=== PATIENT | female | born 1990 | race Caucasian/White ===

== ENCOUNTER 2016-10-01 13:03 | Inpatient (IN) | payer OTHER ==
[~2016-10-01] VITALS: Ht 165.1 cm; Wt 63.5 kg
[2016-10-01] MEDS ORDERED: Ampicillin/Sulbactam Sod 3 GM in NS 110 ML IVPB ONE (14:00)
[2016-10-01] MEDS ORDERED: Unasyn 3gm Inj ONE (14:10)
[2016-10-01] MEDS ORDERED: Morphine Sulfate 4mg/ml Inj IVP ONE (14:15)
[2016-10-01 14:57] LABS: BASOPHILS % (AUTO) 0.4 % (0.0-2.0); EOSINOPHILS % (AUTO) 1.3 % (0.0-3.0); LYMPHOCYTES % (AUTO) 26.1 % (20.0-45.0); MEAN CORPUSCULAR HEMOGLOBIN 30.1 PG (27.0-31.0); MEAN CORPUSCULAR VOLUME 89 FL (80-99); MEAN PLATELET VOLUME 7.3 FL (6.5-10.1); MONOCYTES % (AUTO) 7.5 % (1.0-10.0); NEUTROPHILS % (AUTO) 64.6 % (45.0-75.0); PLATELET COUNT 290 K/UL (150-450); RED BLOOD COUNT 4.12 M/UL (4.20-5.40); WHITE BLOOD COUNT 9.7 K/UL (4.8-10.8)
--- NOTE | 2016-10-01 15:12 | Emergency Room Report ---
History of Present Illness General Chief Complaint: Pain Source: Patient Present Illness HPI 26-year-old female presents to ED for evaluation. Patient referred here by PMD Dr. Bender. Patient states that 4 years ago she received silicone injections in both of her buttocks. States that since then she's had persistent pain to her buttocks. Pain is 10 out of 10. Sharp. Radiating to her back and radiating down her legs. Denies any fevers or chills. Denies any leg or motor weakness. No other aggravating relieving factors. Denies any other associated symptoms Allergies: Coded Allergies: No Known Allergies (Unverified , 10/01/16) Patient History Past Medical History: none Past Surgical History: none Pertinent Family History: none Social History: Denies: alcohol use, drug use, smoking Last Menstrual Period: 09/22/16 Now: No Immunizations: UTD Reviewed Nursing Documentation: PMH: Agreed, PSxH: Agreed Nursing Documentation-PMH Past Medical History: No Stated History Review of Systems All Other Systems: negative except mentioned in HPI Physical Exam Vital Signs Date Time Temp Pulse Resp B/P Pulse Ox O2 Delivery O2 Flow Rate FiO2 10/01/16 13:05 98.2 105 22 137/92 96 Room Air Sp02 EP Interpretation: reviewed, normal General Appearance: no apparent distress, alert, GCS 15, non-toxic Head: normocephalic Eyes: bilateral eye PERRL, bilateral eye normal inspection ENT: normal ENT inspection Neck: normal inspection Respiratory: chest non-tender, lungs clear, normal breath sounds, speaking full sentences Cardiovascular #1: regular rate, rhythm, no edema Gastrointestinal: normal bowel sounds, non tender, soft, non-distended, no guarding, no rebound Rectal: deferred Genitourinary: no CVA tenderness Musculoskeletal: back normal Neurologic: alert, oriented x3, responsive, motor strength/tone normal, sensory intact, speech normal Psychiatric: normal inspection Skin: other - induration/erythema to bilateral buttocks Lymphatic: normal inspection Medical Decision Making Diagnostic Impression: Primary Impression: Intractable back pain Additional Impression: Adverse effect of silicone Qualified Codes: T49.3X5A - Adverse effect of emollients, demulcents and protectants, initial encounter ER Course Hospital Course 26year-old female presents to ED with back pain, pain to buttocks. 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 Bender and he agreed to accept the patient to his service for further care and support I feel this is a highly complex case requiring extensive working including EKG/ Rhythm strip, Xray/CT/US, Blood/urine lab work, repeat exams while in ED, and administration of strong opiates/narcotics for pain control, admission to hospital or close patient follow up. Diagnosis -intractable back pain, advderse effect of silicone Patient admitted to floor in serious condition Labs Test 10/01/16 14:10 White Blood Count 9.7 K/UL (4.8-10.8) Red Blood Count 4.12 M/UL (4.20-5.40) Hemoglobin 12.4 G/DL (12.0-16.0) Hematocrit 36.5 % (37.0-47.0) Mean Corpuscular Volume 89 FL (80-99) Mean Corpuscular Hemoglobin 30.1 PG (27.0-31.0) Mean Corpuscular Hemoglobin Concent 34.0 G/DL (32.0-36.0) Red Cell Distribution Width 11.0 % (11.6-14.8) Platelet Count 290 K/UL (150-450) Mean Platelet Volume 7.3 FL (6.5-10.1) Neutrophils (%) (Auto) 64.6 % (45.0-75.0) Lymphocytes (%) (Auto) 26.1 % (20.0-45.0) Monocytes (%) (Auto) 7.5 % (1.0-10.0) Eosinophils (%) (Auto) 1.3 % (0.0-3.0) Basophils (%) (Auto) 0.4 % (0.0-2.0) Last Vital Signs Date Time Temp Pulse Resp B/P Pulse Ox O2 Delivery O2 Flow Rate FiO2 10/01/16 13:05 98.2 105 22 137/92 96 Room Air Status: improved Disposition: ADMITTED INPATIENT Condition: Serious Referrals: NOT CHOSEN IPA/MD,REFERRING (PCP) HERMINIO MONTANEZ M.D. Oct 01, 2016 15:12
[2016-10-01 15:16] LABS: TROPONIN I < 0.30 ng/mL (<=0.30)
[2016-10-01 15:18] LABS: ALANINE AMINOTRANSFERASE 18 U/L (3-33); ALBUMIN/GLOBULIN RATIO 1.6 (1.0-2.7); ANION GAP 14 (5-15); ASPARTATE AMINO TRANSFERASE 18 U/L (5-40); CALCIUM 9.4 mg/dL (8.6-10.2); CARBON DIOXIDE 26 mEQ/L (20-30); CHLORIDE 100 mEQ/L (98-107); CREATININE 0.7 mg/dL (0.5-0.9); GLOMERULAR FILTRATION RATE > 60 mL/min (>60); HEMOLYSIS 14; POTASSIUM 3.7 mEQ/L (3.4-4.9); SODIUM 140 mEQ/L (135-145); TOTAL PROTEIN 7.3 g/dL (6.6-8.7)
[2016-10-01 15:29] LABS: CKMB < 1.5 ng/mL (< 3.8)
[2016-10-01 15:32] VITALS: BP 137/92
[2016-10-01 16:42] LABS: APPEARANCE,URINE CLEAR; KETONES,URINE NEGATIVE (NEGATIVE); NITRITE,URINE NEGATIVE (NEGATIVE); PH,URINE 5 (4.5-8.0); PROTEIN,URINE NEGATIVE (NEGATIVE)
[2016-10-01 16:43] LABS: LEUKOCYTE ESTERASE ,URINE NEGATIVE (NEGATIVE); UROBILINOGEN,URINE NORMAL MG/DL (0.0-1.0)
[2016-10-01 16:51] LABS: RBC,URINE 0-2 /HPF (0 - 2); SQUAMOUS EPITHELIAL CELL,UR FEW /LPF (NONE/OCC); WBC,URINE 0-2 /HPF (0 - 2)
[2016-10-01 17:34] VITALS: BP 109/58
[2016-10-01] MEDS ORDERED: Morphine Sulfate 2mg/ml Inj IVP PRN (18:45)
[2016-10-01] MEDS ORDERED: Mylanta II UD 30ml ORAL PRN (18:45)
[2016-10-01] MEDS ORDERED: Morphine Sulfate 4mg/ml Inj IVP PRN (18:45)
[2016-10-01] MEDS ORDERED: Milk of Magnesia 30ml Ud ORAL PRN (18:45)
[2016-10-01 20:39] VITALS: BP 128/71
[2016-10-01] MEDS ORDERED: Miralax 17gm pkt ORAL PRN (21:00)
[2016-10-01 21:17] VITALS: BP 127/66
--- NOTE | 2016-10-01 21:41 | History and Physical ---
History of Present Illness General Date patient seen: Oct 01, 2016 Time patient seen: 18:00 Reason for Hospitalization: Pain Present Illness HPI 26 y/o female who presents to the ED with severe gluteal pain that is not well controlled at home with OTC analgesics. She also c/o burning in that region. Also endorses severe mid-low back pain with BLE paresthesias, no muscle or focal weakness. She had a silicone injection in her gluteal region in 2011, and has had these symptoms over the last 6-7 months, progressively increasing in intensity. No bladder/bowel changes. She complains of severe fatigue and malaise. She has had some subjective fevers, no chills. No abd pain or n/v. No chest pain, but does get occasional shortness of breath. Allergies: Coded Allergies: No Known Allergies (Unverified , 10/01/16) Patient History History Provided By: Patient Healthcare decision maker Resuscitation status Advanced Directive on File Family History Family History: Patient reports no known family medical history. Social History Social History: (1) No significant social history Review of Systems Constitutional: Reports: fever Eye: Denies: acuity changes, blurred vision, discharge, double vision, eye pain , no symptoms, nose congestion, nose pain, other, see HPI, tearing ENT: Denies: ear discharge, ear pain, hearing loss, mouth pain, nasal discharge , no symptoms, nose congestion, nose pain, other, see HPI, throat pain, throat swelling Respiratory: Reports: shortness of breath Cardiovascular: Denies: PND, chest pain, edema, no symptoms, other, palpitations, see HPI, syncope Gastrointestinal: Denies: abdominal pain, constipation, diarrhea, hematemesis, melena, nausea, no symptoms, other, see HPI, vomiting Genitourinary: Denies: discharge, dysuria, frequency, hematuria, incontinence, no symptoms, other, pain, retention, see HPI, urgency, vag bleed/dc Musculoskeletal: Reports: back pain, muscle pain Skin: Reports: change in color Psychiatric: Denies: HI, SI, anxiety, depressed feelings, emotional problems, hallucinations, no symptoms, other, prior hx, see HPI Neurological: Reports: numbness, paresthesia, tingling Endocrine: Denies: excessive sweating, flushing, increased thirst, increased urine, intolerance to temperature, no symptoms, other, see HPI, unexplained weight loss Hematologic/Lymphatic: Denies: anemia, blood clots, diathesis, easy bleeding, easy bruising, no symptoms, other, see HPI, swollen glands Physical Exam General Appearance: WD/WN, no apparent distress, alert Lines, tubes and drains: peripheral HEENT: normocephalic, atraumatic, anicteric, mucous membranes moist Neck: non-tender, normal alignment, supple, normal inspection Respiratory/Chest: chest wall non-tender, lungs clear, normal breath sounds, no respiratory distress, no accessory muscle use Cardiovascular/Chest: normal peripheral pulses, normal rate, regular rhythm, no gallop/murmur, no JVD Abdomen: normal bowel sounds, non tender, soft, no mass Extremities: normal range of motion, non-tender, normal inspection, no calf tenderness Skin Exam: normal pigmentation, warm/dry, no diaphoresis Neurologic: alert, oriented x 3, responsive, normal mood/affect Musculoskeletal: normal muscle bulk Physical Exam Narrative Buttocks area: There are areas of hyperpigmentation at the medial aspects of the gluteal folds, mild tenderness to palpation, no tay erythema or induration , mild rubor Laboratory Tests Test 10/01/16 14:10 10/01/16 16:15 White Blood Count 9.7 K/UL (4.8-10.8) Red Blood Count 4.12 M/UL (4.20-5.40) L Hemoglobin 12.4 G/DL (12.0-16.0) Hematocrit 36.5 % (37.0-47.0) L Mean Corpuscular Volume 89 FL (80-99) Mean Corpuscular Hemoglobin 30.1 PG (27.0-31.0) Mean Corpuscular Hemoglobin Concent 34.0 G/DL (32.0-36.0) Red Cell Distribution Width 11.0 % (11.6-14.8) L Platelet Count 290 K/UL (150-450) Mean Platelet Volume 7.3 FL (6.5-10.1) Neutrophils (%) (Auto) 64.6 % (45.0-75.0) Lymphocytes (%) (Auto) 26.1 % (20.0-45.0) Monocytes (%) (Auto) 7.5 % (1.0-10.0) Eosinophils (%) (Auto) 1.3 % (0.0-3.0) Basophils (%) (Auto) 0.4 % (0.0-2.0) Erythrocyte Sedimentation Rate Pending Sodium Level 140 mEQ/L (135-145) Potassium Level 3.7 mEQ/L (3.4-4.9) Chloride Level 100 mEQ/L (98-107) Carbon Dioxide Level 26 mEQ/L (20-30) Anion Gap 14 (5-15) Blood Urea Nitrogen 15 mg/dL (7-23) Creatinine 0.7 mg/dL (0.5-0.9) Estimat Glomerular Filtration Rate > 60 mL/min (>60) Glucose Level 82 mg/dL (74-106) Lactic Acid Level 0.70 mmol/L (0.66-2.22) Calcium Level 9.4 mg/dL (8.6-10.2) Total Bilirubin 0.4 mg/dL (0.0-1.2) Aspartate Amino Transf (AST/SGOT) 18 U/L (5-40) Alanine Aminotransferase (ALT/SGPT) 18 U/L (3-33) Alkaline Phosphatase 78 U/L (35-104) Creatine Kinase MB < 1.5 ng/mL (< 3.8) Troponin I < 0.30 ng/mL (<=0.30) C-Reactive Protein, Quantitative Pending Total Protein 7.3 g/dL (6.6-8.7) Albumin 4.5 g/dL (3.5-5.2) Globulin 2.8 g/dL Albumin/Globulin Ratio 1.6 (1.0-2.7) Urine Color Pale yellow Urine Appearance Clear Urine pH 5 (4.5-8.0) Urine Specific [place] 1.015 (1.005-1.035) Urine Protein Negative (NEGATIVE) Urine Glucose (UA) Negative (NEGATIVE) Urine Ketones Negative (NEGATIVE) Urine Occult Blood 1+ (NEGATIVE) H Urine Nitrite Negative (NEGATIVE) Urine Bilirubin Negative (NEGATIVE) Urine Urobilinogen Normal MG/DL (0.0-1.0) Urine Leukocyte Esterase Negative (NEGATIVE) Urine RBC 0-2 /HPF (0 - 2) Urine WBC 0-2 /HPF (0 - 2) Urine Squamous Epithelial Cells Few /LPF (NONE/OCC) Urine Bacteria None /HPF (NONE) Last 24 Hour Vital Signs Date Time Temp Pulse Resp B/P Pulse Ox O2 Delivery O2 Flow Rate FiO2 10/01/16 20:40 98.2 84 19 128/71 96 Room Air 10/01/16 20:39 98.2 84 19 128/71 96 Room Air 10/01/16 17:34 98.2 78 18 109/58 96 Room Air 10/01/16 15:32 98.2 22 137/92 96 Room Air 10/01/16 15:20 98.2 10/01/16 13:05 98.2 105 22 137/92 96 Room Air Laboratory Tests Test 10/01/16 14:10 10/01/16 16:15 White Blood Count 9.7 K/UL (4.8-10.8) Red Blood Count 4.12 M/UL (4.20-5.40) L Hemoglobin 12.4 G/DL (12.0-16.0) Hematocrit 36.5 % (37.0-47.0) L Mean Corpuscular Volume 89 FL (80-99) Mean Corpuscular Hemoglobin 30.1 PG (27.0-31.0) Mean Corpuscular Hemoglobin Concent 34.0 G/DL (32.0-36.0) Red Cell Distribution Width 11.0 % (11.6-14.8) L Platelet Count 290 K/UL (150-450) Mean Platelet Volume 7.3 FL (6.5-10.1) Neutrophils (%) (Auto) 64.6 % (45.0-75.0) Lymphocytes (%) (Auto) 26.1 % (20.0-45.0) Monocytes (%) (Auto) 7.5 % (1.0-10.0) Eosinophils (%) (Auto) 1.3 % (0.0-3.0) Basophils (%) (Auto) 0.4 % (0.0-2.0) Sodium Level 140 mEQ/L (135-145) Potassium Level 3.7 mEQ/L (3.4-4.9) Chloride Level 100 mEQ/L (98-107) Carbon Dioxide Level 26 mEQ/L (20-30) Anion Gap 14 (5-15) Blood Urea Nitrogen 15 mg/dL (7-23) Creatinine 0.7 mg/dL (0.5-0.9) Estimat Glomerular Filtration Rate > 60 mL/min (>60) Glucose Level 82 mg/dL (74-106) Lactic Acid Level 0.70 mmol/L (0.66-2.22) Calcium Level 9.4 mg/dL (8.6-10.2) Total Bilirubin 0.4 mg/dL (0.0-1.2) Aspartate Amino Transf (AST/SGOT) 18 U/L (5-40) Alanine Aminotransferase (ALT/SGPT) 18 U/L (3-33) Alkaline Phosphatase 78 U/L (35-104) Creatine Kinase MB < 1.5 ng/mL (< 3.8) Troponin I < 0.30 ng/mL (<=0.30) Total Protein 7.3 g/dL (6.6-8.7) Albumin 4.5 g/dL (3.5-5.2) Globulin 2.8 g/dL Albumin/Globulin Ratio 1.6 (1.0-2.7) Urine Color Pale yellow Urine Appearance Clear Urine pH 5 (4.5-8.0) Urine Specific [place] 1.015 (1.005-1.035) Urine Protein Negative (NEGATIVE) Urine Glucose (UA) Negative (NEGATIVE) Urine Ketones Negative (NEGATIVE) Urine Occult Blood 1+ (NEGATIVE) H Urine Nitrite Negative (NEGATIVE) Urine Bilirubin Negative (NEGATIVE) Urine Urobilinogen Normal MG/DL (0.0-1.0) Urine Leukocyte Esterase Negative (NEGATIVE) Urine RBC 0-2 /HPF (0 - 2) Urine WBC 0-2 /HPF (0 - 2) Urine Squamous Epithelial Cells Few /LPF (NONE/OCC) Urine Bacteria None /HPF (NONE) Height (Feet): 5 Height (Inches): 5.00 Weight (Pounds): 140 Medications Current Medications Medications (Trade) Dose Ordered Sig/Vanessa Route PRN Reason Start Time Stop Time Status Last Admin Dose Admin Acetaminophen (Tylenol) 650 mg Q4H PRN ORAL Mild Pain (Pain Scale 1-3) 10/01/16 18:45 10/31/16 18:44 Acetaminophen (Tylenol) 650 mg Q4H PRN ORAL T>100.5 10/01/16 18:45 10/31/16 18:44 Al Hydroxide/Mg Hydroxide (Mylanta II) 30 ml Q6H PRN ORAL dyspepsia 10/01/16 18:45 10/31/16 18:44 Ampicillin Sodium/ Sulbactam Sodium/ Sodium Chloride (Unasyn/Sodium Chloride) 110 ml @ 220 mls/hr Q6HR IVPB 10/02/16 00:00 10/09/16 00:00 Bisacodyl (Dulcolax) 10 mg HSPRN PRN RECTAL Constipation 10/01/16 21:00 10/31/16 20:59 Dextrose STAT PRN IV Hypoglycemia 10/01/16 18:45 10/31/16 18:44 Diphenhydramine HCl (Benadryl) 25 mg Q6H PRN ORAL Itching/Pruritis 10/01/16 18:45 10/31/16 18:44 Docusate Sodium (Colace) 100 mg EVERY 12 HOURS ORAL 10/01/16 21:00 10/31/16 20:59 Heparin Sodium (Porcine) (Heparin 5000 units/ml) 5,000 units EVERY 12 HOURS SUBQ 10/01/16 21:00 10/31/16 20:59 Lorazepam (Ativan) 1 mg Q4H PRN ORAL For Anxiety 10/01/16 18:45 10/08/16 18:44 Magnesium Hydroxide (Mom) 30 ml HSPRN PRN ORAL Constipation 10/01/16 18:45 10/31/16 18:44 Morphine Sulfate (Morphine Sulfate) 2 mg Q4H PRN IVP Moderate Pain (Pain Scale 4-6) 10/01/16 18:45 10/08/16 18:44 Morphine Sulfate (Morphine Sulfate) 4 mg Q4H PRN IVP Severe Pain (Pain Scale 7-10) 10/01/16 18:45 10/08/16 18:44 Ondansetron HCl (Zofran) 4 mg Q6H PRN IVP Nausea & Vomiting 10/01/16 18:45 10/31/16 18:44 Polyethylene Glycol (Miralax) 17 gm HSPRN PRN ORAL Constipation 10/01/16 21:00 10/31/16 20:59 Temazepam (Restoril) 15 mg HSPRN PRN ORAL Insomnia 10/01/16 21:00 10/08/16 20:59 Assessment/Plan Problem List: (1) Intractable back pain Assessment & Plan: Admit to inpatient Will need expedited workup of severe low back pain, s/p gluteal silicone injection Extensive lab workup to r/o AROLDO syndrome given classical symptoms and presentation MRI L spine and pelvis to r/o fluid collection, cord compression, soft tissue necrosis Check urine f/u blood cultures Start IV unasyn A total of 31 mins of additional time was spent with this patient beyond the normal face to face time included in the visit ICD Codes: M54.9 - Dorsalgia, unspecified SNOMED: [id number] DAVID TURNER Oct 01, 2016 21:40
[2016-10-01] MEDS: Docusate 100mg cap ORAL SCH (22:21)
[2016-10-01] MEDS: Heparin 5000 units/ml inj SUBQ SCH (22:26)
[2016-10-02] VITALS (7 sets, daily range): BP systolic 108–135; BP diastolic 56–82
[2016-10-02] MEDS ORDERED: Unasyn 3gm Inj IV SCH
[2016-10-02] MEDS: Unasyn 3gm/NS 110ml IVPB SCH ×10 (01:15→23:57)
[2016-10-02 07:52] LABS: ANION GAP 14 (5-15); CARBON DIOXIDE 25 mEQ/L (20-30); CHLORIDE 102 mEQ/L (98-107); CREATININE 0.6 mg/dL (0.5-0.9); GLOMERULAR FILTRATION RATE > 60 mL/min (>60); HEMOLYSIS 6; POTASSIUM 4.1 mEQ/L (3.4-4.9); SODIUM 141 mEQ/L (135-145)
[2016-10-02] MEDS: Heparin 5000 units/ml inj SUBQ SCH ×2 (09:00→20:50)
[2016-10-02] MEDS: Docusate 100mg cap ORAL SCH ×2 (09:00→21:15)
[2016-10-02] MEDS ORDERED: NS 275ml ONE (09:40)
[2016-10-02] MEDS ORDERED: Tubing IV Secondary IV ONE (09:40)
[2016-10-02 11:42] LABS: INR 1.2 (0.9-1.1)
--- NOTE | 2016-10-02 13:03 | General Progress Note ---
Assessment/Plan Problem List: (1) Intractable back pain Assessment & Plan: f/u expedited workup of severe low back pain, s/p gluteal silicone injection, and lab workup to r/o AROLDO syndrome given classical symptoms and presentation f/u MRI L spine and pelvis to r/o fluid collection, cord compression, soft tissue necrosis urine neg f/u blood cultures Cont IV unasyn A total of 31 mins of additional time was spent with this patient beyond the normal face to face time included in the visit ICD Codes: M54.9 - Dorsalgia, unspecified SNOMED: [id number] Subjective Date patient seen: Oct 02, 2016 Time patient seen: 13:01 ROS Limited/Unobtainable: No Allergies: Coded Allergies: No Known Allergies (Unverified , 10/01/16) Subjective No acute overnight events, no new complaints, no change in symptoms Objective Last 24 Hour Vital Signs Date Time Temp Pulse Resp B/P Pulse Ox O2 Delivery O2 Flow Rate FiO2 10/02/16 12:15 98.3 72 21 130/82 97 Room Air 10/02/16 08:15 98.1 76 20 116/56 100 Room Air 10/02/16 04:00 97.9 72 16 135/69 97 Room Air 10/02/16 00:00 98.2 92 22 110/73 92 Nasal Cannula 2.0 10/01/16 21:17 98.2 77 20 127/66 98 Room Air 10/01/16 20:40 98.2 84 19 128/71 96 Room Air 10/01/16 20:39 98.2 84 19 128/71 96 Room Air 10/01/16 17:34 98.2 78 18 109/58 96 Room Air 10/01/16 15:32 98.2 22 137/92 96 Room Air 10/01/16 15:20 98.2 10/01/16 13:05 98.2 105 22 137/92 96 Room Air Intake and Output 10/01/16 10/02/16 19:00 07:00 Intake Total 460 ml Balance 460 ml Intake Oral 240 ml IV Total 220 ml # Voids 1 3 Laboratory Tests 10/01/16 14:10: White Blood Count 9.7, Red Blood Count 4.12L, Hemoglobin 12.4, Hematocrit 36.5L , Mean Corpuscular Volume 89, Mean Corpuscular Hemoglobin 30.1, Mean Corpuscular Hemoglobin Concent 34.0, Red Cell Distribution Width 11.0L, Platelet Count 290, Mean Platelet Volume 7.3, Neutrophils (%) (Auto) 64.6, Lymphocytes (%) (Auto) 26.1, Monocytes (%) (Auto) 7.5, Eosinophils (%) (Auto) 1.3, Basophils (%) (Auto) 0.4, Erythrocyte Sedimentation Rate 5, Sodium Level 140, Potassium Level 3.7, Chloride Level 100, Carbon Dioxide Level 26, Anion Gap 14, Blood Urea Nitrogen 15, Creatinine 0.7, Estimat Glomerular Filtration Rate > 60, Glucose Level 82, Lactic Acid Level 0.70, Calcium Level 9.4, Total Bilirubin 0.4, Aspartate Amino Transf (AST/SGOT) 18, Alanine Aminotransferase ( ALT/SGPT) 18, Alkaline Phosphatase 78, Creatine Kinase MB < 1.5, Troponin I < 0.30, C-Reactive Protein, Quantitative < 0.3, Total Protein 7.3, Albumin 4.5, Globulin 2.8, Albumin/Globulin Ratio 1.6 10/01/16 16:15: Urine Color Pale yellow, Urine Appearance Clear, Urine pH 5, Urine Specific [place] 1.015, Urine Protein Negative, Urine Glucose (UA) Negative, Urine Ketones Negative, Urine Occult Blood 1+H, Urine Nitrite Negative, Urine Bilirubin Negative, Urine Urobilinogen Normal, Urine Leukocyte Esterase Negative , Urine RBC 0-2, Urine WBC 0-2, Urine Squamous Epithelial Cells Few, Urine Bacteria None, Urine HCG, Qualitative Negative 10/02/16 04:30: White Blood Count [Pending], Sodium Level 141, Potassium Level 4.1, Chloride Level 102, Carbon Dioxide Level 25, Anion Gap 14, Blood Urea Nitrogen 13, Creatinine 0.6, Estimat Glomerular Filtration Rate > 60, Glucose Level 86, Calcium Level 9.0, Albumin/Globulin Ratio [Pending], Lymphocytes [Pending], Lupus Anticoagulant [Pending], Lupus Anticoagulant PTT Baseline [Pending], Lupus Anticoag DRVVT Screen Ratio [Pending], DRVVT Confirmation Interpretation [ Pending], Hexagonal Phase Comment [Pending], Total Protein (PEP) [Pending], Albumin (PEP) [Pending], Globulin (PEP) [Pending], Zport-5-Laukmptmi [Pending], Betzb-8-Zqqovdmpg [Pending], Beta Globulins [Pending], Beta Gamma Globulin [ Pending], PEP Abnormal Protein Bands [Pending], Protein Electrophoresis Interpret [Pending], Angiotensin Converting Enzyme [Pending], Immunoglobulin G [ Pending], Immunoglobulin A [Pending], Immunoglobulin M [Pending], Immunofixation Screen [Pending], Circulating Immune Complexes [Pending], Rheumatoid Factor Screen [Pending], SS-A/Ro Antibody [Pending], SS-B/La Antibody [Pending], Total Complement (CH50) [Pending], Percent CD3 Cells [ Pending], Absolute CD3 Count [Pending], Percent CD4 Cells [Pending], Absolute CD4 Count [Pending], T-Lymphocyte CD4/CD8 Ratio [Pending], Percent CD8 Cells [ Pending], Absolute CD8 Count [Pending] 10/02/16 11:15: Prothrombin Time 12.0H, Prothromb Time International Ratio 1.2H, Activated Partial Thromboplast Time 29 Height (Feet): 5 Height (Inches): 5.00 Weight (Pounds): 140 General Appearance: WD/WN, no apparent distress, alert EENT: PERRL/EOMI, normal ENT inspection Neck: non-tender, normal alignment, supple, normal inspection Cardiovascular: normal peripheral pulses, normal rate, regular rhythm, no gallop/murmur, no JVD Respiratory/Chest: chest wall non-tender, lungs clear, normal breath sounds, no respiratory distress, no accessory muscle use Abdomen: normal bowel sounds, non tender, soft Extremities: normal range of motion, non-tender, normal inspection, no calf tenderness Edema: no edema noted Arm (L), no edema noted Arm (R), no edema noted Leg (L), no edema noted Leg (R), no edema noted Pedal (L), no edema noted Pedal (R), no edema noted Generalized Neurologic: alert, oriented x 3, responsive, normal mood/affect Skin: normal pigmentation, warm/dry, no diaphoresis DAVID TURNER Oct 02, 2016 13:03
[2016-10-03] VITALS (11 sets, daily range): BP systolic 109–143; BP diastolic 57–85
--- NOTE | 2016-10-03 01:41 | Consultation ---
Consult Note Consult Note job number # [id number] Daria Hernandez M.D. Oct 03, 2016 01:41
[2016-10-03] MEDS: Unasyn 3gm/NS 110ml IVPB SCH ×6 (05:26→19:05)
[2016-10-03] MEDS: Docusate 100mg cap ORAL SCH ×2 (08:41→20:58)
[2016-10-03] MEDS: Heparin 5000 units/ml inj SUBQ SCH (08:45)
--- NOTE | 2016-10-03 09:07 | Consultation ---
DATE OF CONSULTATION: CONSULTING PHYSICIAN: Daria Hernandez M.D. ATTENDING PHYSICIAN: Jannette Gamble M.D. HISTORY OF PRESENT ILLNESS: This is a 26-year-old female with history of severe gluteal pain not controlled at home. She also has bilateral lower extremity paresthesia. She had injections in her gluteal region in 2011. She is here today for correctional spasmatic surgery. She has no history of illicit drug use or alcohol. No history of psychiatric illness. She was pleasant during evaluation and was anxious in regard to her current situation and effusive surgery, which is appropriate we have discussed risks and benefits of the surgery. We discussed. The patient might still question that it is impossible to remove all of the foreign material and there will be some left. It is also possible that the silicone continue to migrate in the future. We also discussed that the patient may have several surgeries over many years and there is a chance that and there is a chance that the patient may not be improved after the surgery. The patient was able to understand, process, communicate, and appreciate the information that was given to her. PAST PSYCHIATRIC HISTORY: No history of illicit drug use or alcohol. No history of psychiatric illness. No suicide attempt. No psychiatric hospitalizations. PAST MEDICAL HISTORY: None known. ALLERGIES: No known drug allergies. SUBSTANCE ABUSE HISTORY: None. FAMILY HISTORY: None significant. MENTAL STATUS EXAMINATION: The patient is alert and oriented x4. She is pleasant and cooperative. Mood is mildly anxious. Affect is constricted. Congruent with mood. Thought process linear. Thought content no suicidal, homicidal ideation. No delusions. No auditory or visual hallucinations. Cognition is intact. Insight and judgment is good. ASSESSMENT: The patient has capacity to make formal informed decision in regard to her medical conditions. She was able to understand risks and benefits of the surgery. She is able to understand process, communicate, and appreciate the information given to her in regard to medical conditions and surgery. Daria Hernandez M.D. LESLIE Goodwin JOB#: [id number] CC:
[2016-10-03 10:17] LABS: RHEUMATOID FACTOR SCREEN <10.0 IU/mL (0.0-13.9)
[2016-10-03] MEDS: LORazepam 1mg tab ORAL PRN (12:41)
[2016-10-03] MEDS ORDERED: Bacitracin 50000 Units Vial ONE (14:00)
[2016-10-03] MEDS ORDERED: Propofol 10mg/ml 20ml IV ONE (14:00)
--- NOTE | 2016-10-03 15:19 | Pre-Procedure Note/Attestation ---
Pre-Procedure Note/Attestation Complete Prior to Procedure Planned Procedure: bilateral Procedure Narrative: staged debridement of b/l back and buttock soft tissue necrosis, flap delay and vac placement Indications for Procedure Pre-Operative Diagnosis: b/l buttock and back soft tissue necrosis, cellulitis Attestation I attest that I discussed the nature of the procedure; its benefits; risks and complications; and alternatives (and the risks and benefits of such alternatives ), prior to the procedure, with the patient (or the patient's legal junior sales representative). I attest that, if there was a reasonable possibility of needing a blood transfusion, the patient (or the patient's legal junior sales representative) was given the [place] Department [employer] standardized written summary, pursuant to the Frederic [place] Blood Safety Act ([place] Health and Safety Code # 1645, as amended). I attest that I re-evaluated the patient just prior to the surgery and that there has been no change in the patient's H&P, except as documented below: Sonia Soliman M.D. Oct 03, 2016 15:19
--- NOTE | 2016-10-03 15:26 | Diagnostic Imaging Report ---
Indication: History of silicone injection into bilateral buttocks. Preoperative imaging for assessment of distribution of silicone Technique: Coronal and axial T1 fast spin-echo coronal FSE IR, axial FSE STIR axial T2 FR FSE with and without fat saturation images of the pelvis Comparison: None Findings: Innumerable nodules are seen within the bilateral buttocks. These demonstrate low signal on T1-weighted images, high signal on the IR images, are slightly hypointense to the subcutaneous fat on the T2-weighted images, and suppress more than subcutaneous fat on the fat saturated images. The subcutaneous abnormality is predominantly confined to the bilateral buttock region, extends as far cephalad as about the L4 level, extent is very slightly to the proximal thighs. It is predominantly posterior, with does not extend as far anterior as either hip. There is also extensive increased T1 signal within the bilateral gluteus jaycob musculature, involving nearly the entirety of the gluteus musculature: and to a lesser extent within the gluteus medius musculature. The muscular involvement appears more homogeneous and less nodular in the subcutaneous involvement, although there may be a few small nodules visible on the coronal STIR images. There is a small discrete fluid collection within the periphery of the right gluteus maximum musculature which measures approximately 5 x 2.5 x 0.9 cm. The bone marrow signal is unremarkable. The included pelvic viscera are unremarkable. Impression: Extensive subcutaneous nodularity involving the bilateral buttocks, consistent with granulomas from prior silicone injection. Diffuse abnormal signal within the bilateral gluteus jaycob and to a lesser extent gluteus minimus musculature, presumably related to the prior silicone injections, most likely reactive edema related to such. There are also does appear to be a few small intramuscular granulomata. 5 x 2.5 x 0.9 cm collection within the right gluteus jaycob muscle. Uncertain as whether this represents a large granuloma or a small discrete abscess.
[2016-10-03] MEDS ORDERED: Zemuron 50mg/5ml Inj IV ONE (15:30)
[2016-10-03] MEDS ORDERED: LR 1000ml ONE (15:30)
[2016-10-03] MEDS ORDERED: NS Irrig 1000ml ONE ×2 (15:30)
[2016-10-03] MEDS ORDERED: Morphine Sulfate 10mg/ml Inj ONE (15:30)
[2016-10-03] MEDS ORDERED: Sterile Water Irrig 1000ml IRRIG ONE (15:30)
[2016-10-03] MEDS ORDERED: Midazolam 2mg/2ml Inj ONE (15:30)
[2016-10-03] MEDS ORDERED: fentaNYL 100 mcg/2 mL IV ONE (15:30)
--- NOTE | 2016-10-03 15:40 | Operative Note - PDOC ---
Operative Note Operative Note Pre-op Diagnosis: b/l buttock and back soft tissue necrosis, cellulitis Procedure: staged debridement of b/l buttock and back necrotic soft tissue, flap delay and vac placement Post-op Diagnosis: same as above Post-op Diagnosis: same as pre-op Surgeon: gris Bottom Scrubber: piyush Anesthesiologist: arden Anesthesia: general Specimen: yes Complications: none Condition: stable Estimated Blood Loss: volume - 250 Drains: wound vac Implant(s) used?: No Sonia Soliman M.D. Oct 03, 2016 15:40
[2016-10-03] MEDS ORDERED: Rate Change PCA 1 Each MISC PRN (15:45)
--- NOTE | 2016-10-03 15:57 | Anethesia Preoperative Eval ---
Anesthesia Pre-op PMH/ROS General Date of Evaluation: Oct 03, 2016 Time of Evaluation: 15:16 Anesthesiologist: Whitley ASA Score: ASA 1 Mallampati Score Class I : Soft palate, uvula, fauces, pillars visible Class II: Soft palate, uvula, fauces visible Class III: Soft palate, base of uvula visible Class IV: Only hard plate visible Mallampati Classification: Class I Surgeon: Jourdan Diagnosis: Soft tissue necrosis Surgical Procedure: Debridement of soft tissue necrosis Allergies: Coded Allergies: No Known Allergies (Unverified , 10/01/16) Medications: see eMAR Past Medical History Cardiovascular: Denies: CAD, HTN, [place], arrhythmia, other, valve dz Pulmonary: Denies: COPD, EDNA, asthma, other Gastrointestinal/Genitourinary: Denies: CRI, ESRD, GERD, other Neurologic/Psychiatric: Denies: CVA, TIA, dementia, depression/anxiety, other Endocrine: Denies: DM, hypothyroidism, other, steroids HEENT: Denies: KOBUK (L), KOBUK (R), cataract (L), cataract (R), glaucoma, other Hematology/Immune: Denies: DVT, anemia, bleeding disorder, other Musculoskeletal/Integumentary: Denies: DDD, DJD, OA, RA, edema, other PMH Narrative: Denies PSxH Narrative: Kidney stone removal Anesthesia Pre-op Phys. Exam Physician Exam Last Vital Signs Date Time Temp Pulse Resp B/P Pulse Ox O2 Delivery O2 Flow Rate FiO2 10/03/16 11:42 97.5 78 18 129/81 98 Room Air 10/02/16 00:00 2.0 Constitutional: NAD Neurologic: CN 2-12 intact Cardiovascular: RRR, no M/R/G Respiratory: CTA Gastrointestinal: S/NT/ND Airway Exam Mallampati Score: Class I MO: full ROM: full Teeth: intact Anesthesia Pre-op A/P Risk Assessment & Plan Assessment: Healthy female Plan: GETA, prone Status Change Before Surgery: No Pre-Antibiotics Drug: Ancef Given Within 1 Hr of Incision: Yes Time Given: 16:30 EDDA URBINA M.D. Oct 03, 2016 15:57
--- NOTE | 2016-10-03 15:58 | Immediate Post-Op Evaluation ---
Immediate Post-Op Evalulation Immediate Post-Op Evalulation Procedure: Debridement of soft tissue necrosis Date of Evaluation: Oct 03, 2016 Time of Evaluation: 17:20 IV Fluids: 600 Estimated Blood Loss: 100 Urinary Output: 50 Blood Pressure Systolic: 129 Blood Pressure Diastolic: 78 Pulse Rate: 101 Respiratory Rate: 12 O2 Sat by Pulse Oximetry: 100 Temperature (Fahrenheit): 97.8 Pain Score (1-10): 0 Nausea: No Vomiting: No Complications No complication Patient Status: awake, patent, extubated, none Hydration Status: adequate Drug: Ancef Given Within 1 Hr of Incision: Yes Time Given: 16:30 EDDA URBINA M.D. Oct 03, 2016 15:58
--- NOTE | 2016-10-03 16:00 | Diagnostic Imaging Report ---
Indication: History bilateral buttock subcutaneous silicone injections Technique: Sagittal T1 and T2 fast spin echo, sagittal STIR, axial T1 and T2 fast spin-echo images of the lumbar spine Comparison: None Findings: Best appreciated on the STIR images are multiple subcutaneous high high signal nodules. These extend as far cephalad as the level of the L4 vertebral body. Extending more cephalad is mild edema of the subcutaneous fat in the usual location, without discrete nodularity to suggest involvement by silicone granulomata. Also partially appreciated is high T2 signal within the bilateral upper gluteus jaycob musculature, better appreciated on pelvic MRI, reported separately. There is posterior central disc protrusion at L4-5. The disc protrudes approximately 6 mm posterior to the posterior margins of the vertebral body, and results in moderate narrowing of the spinal canal with clumping of the nerve roots at this level. There is no evidence of significant neural foraminal stenosis. At the remainder the disc levels, the disc spaces are preserved. There is some desiccation of a few of the discs. No other is old or protrusion, spinal stenosis, or neural foraminal stenosis demonstrated. The vertebral body marrow signal is normal. The bony alignment is normal. The included abdominal and pelvic viscera are unremarkable. Impression: Subcutaneous fat high STIR signal nodules, extending as far cephalad as the L4 vertebral segment, consistent with known history of silicone injections. Associated abnormality of the bilateral gluteal musculature Positive for central disc protrusion of the L4 disc, with resultant at least moderate narrowing of the spinal canal. Correlate with clinical findings
[2016-10-03] MEDS ORDERED: NS Irrig 1000ml IRRIG ONE (16:05)
[2016-10-03] MEDS ORDERED: LR 1000ml 1,000 ML IVLG SCH (17:07)
[2016-10-03] MEDS ORDERED: Hydromorphone 0.5mg/0.5ml inj IVP PRN (17:15)
[2016-10-03] MEDS ORDERED: Meperidine 25mg/ml Inj IV PRN (17:15)
[2016-10-03] MEDS ORDERED: LORazepam Inj 2mg/ml 1ml IV PRN (17:15)
--- NOTE | 2016-10-03 17:40 | General Progress Note ---
Assessment/Plan Problem List: (1) Intractable back pain Assessment & Plan: Consult plastic surgery as there is fluid collection in the pelvis on MRI, r/o abscess, may need I+D for drainage f/u expedited workup of severe low back pain, s/p gluteal silicone injection, and lab workup to r/o AROLDO syndrome given classical symptoms and presentation urine neg f/u blood cultures Cont IV unasyn A total of 31 mins of additional time was spent with this patient beyond the normal face to face time included in the visit ICD Codes: M54.9 - Dorsalgia, unspecified SNOMED: 720070759 Subjective Date patient seen: Oct 03, 2016 ROS Limited/Unobtainable: No Constitutional: Denies: chills, diaphoresis, fever, malaise, no symptoms, other , weakness HEENT: Denies: blurred vision, double vision, ear discharge, ear pain, eye pain , mouth pain, mouth swelling, no symptoms, nose congestion, nose pain, other, tearing, throat pain, throat swelling Cardiovascular: Denies: chest pain, edema, irregular heart rate, lightheadedness, no symptoms, other, palpitations, syncope Respiratory: Denies: SOB at rest, SOB with excertion, cough, no symptoms, orthopnea, other, shortness of breath, sputum, stridor, wheezing Gastrointestinal/Abdominal: Denies: abdomen distended, abdominal pain, black stools, blood in stool, constipated, diarrhea, difficulty swallowing, nausea, no symptoms, other, poor appetite, poor fluid intake, rectal bleeding, tarry stools, vomiting Genitourinary: Denies: burning, discharge, flank pain, frequency, hematuria, incontinence, no symptoms, other, pain, urgency Neurologic/Psychiatric: Denies: anxiety, depressed, emotional problems, headache, no symptoms, numbness, other, paresthesia, pre-existing deficit, seizure, tingling, tremors, weakness Endocrine: Denies: excessive sweating, flushing, increased hunger, increased thirst, increased urine, intolerance to cold, intolerance to heat, no symptoms, other, unexplained weight gain, unexplained weight loss Hematologic/Lymphatic: Denies: anemia, easy bleeding, easy bruising, no symptoms, other Allergies: Coded Allergies: No Known Allergies (Unverified , 10/01/16) Subjective No acute overnight events, no new complaints, no change in symptoms Objective Last 24 Hour Vital Signs Date Time Temp Pulse Resp B/P Pulse Ox O2 Delivery O2 Flow Rate FiO2 10/03/16 17:30 98 20 129/78 100 Nasal Cannula 3.0 10/03/16 17:20 94 17 143/82 100 Nasal Cannula 3.0 10/03/16 17:15 96 18 117/85 100 Simple Mask 6.0 10/03/16 17:10 93 19 133/75 100 Simple Mask 6.0 10/03/16 17:07 101 12 100 10/03/16 17:05 98.7 102 16 129/78 100 Simple Mask 6.0 10/03/16 11:42 97.5 78 18 129/81 98 Room Air 10/03/16 08:00 97.7 68 16 119/57 100 Room Air 10/03/16 04:00 98.2 75 18 133/83 99 Room Air 10/02/16 20:00 97.2 74 20 108/57 100 Room Air Intake and Output 10/02/16 10/03/16 19:00 07:00 Intake Total 700 ml 1160 ml Balance 700 ml 1160 ml Intake Oral 480 ml 240 ml IV Total 220 ml 920 ml # Voids 3 Height (Feet): 5 Height (Inches): 5.00 Weight (Pounds): 140 General Appearance: WD/WN, no apparent distress, alert EENT: PERRL/EOMI, normal ENT inspection Neck: non-tender, normal alignment, supple Cardiovascular: normal peripheral pulses, normal rate, regular rhythm Respiratory/Chest: chest wall non-tender, lungs clear, normal breath sounds, no respiratory distress Abdomen: normal bowel sounds, non tender, soft Extremities: normal range of motion, non-tender, normal inspection Neurologic: alert, oriented x 3, responsive Skin: normal pigmentation, warm/dry DAVID TURNER Oct 03, 2016 17:40
[2016-10-03] MEDS: PCA HYDROmorphone 1mg/ml 30 ML IV PRN (17:45)
[2016-10-03] MEDS: LR 1000ml 1,000 ML IV SCH (19:05)
[2016-10-03] MEDS: PCA shift volume MISC SCH (23:11)
[2016-10-04] VITALS: BP 128/76
[2016-10-04] MEDS: Unasyn 3gm/NS 110ml IVPB SCH ×10 (00:06→23:57)
[2016-10-04] MEDS: LR 1000ml 1,000 ML IV SCH ×3 (03:25→12:00)
[2016-10-04 04:00] VITALS: BP 119/69
[2016-10-04] MEDS: Heparin 5000 units/ml inj SUBQ SCH ×3 (05:34→22:12)
[2016-10-04 07:09] LABS: BASOPHILS % (AUTO) 0.3 % (0.0-2.0); EOSINOPHILS % (AUTO) 0.5 % (0.0-3.0); MEAN CORPUSCULAR HEMOGLOBIN 30.1 PG (27.0-31.0); MEAN CORPUSCULAR HGB CONC 33.9 G/DL (32.0-36.0); MEAN CORPUSCULAR VOLUME 89 FL (80-99); MEAN PLATELET VOLUME 7.4 FL (6.5-10.1); MONOCYTES % (AUTO) 5.7 % (1.0-10.0); NEUTROPHILS % (AUTO) 77.6 % (45.0-75.0); PLATELET COUNT 278 K/UL (150-450); RED BLOOD COUNT 3.86 M/UL (4.20-5.40); RED CELL DISTRIBUTION WIDTH 11.3 % (11.6-14.8); WHITE BLOOD COUNT 11.5 K/UL (4.8-10.8)
[2016-10-04] MEDS: PCA shift volume MISC SCH ×3 (07:16→23:08)
[2016-10-04 07:43] LABS: ANION GAP 14 (5-15); CALCIUM 9.2 mg/dL (8.6-10.2); CARBON DIOXIDE 26 mEQ/L (20-30); CHLORIDE 99 mEQ/L (98-107); CREATININE 0.7 mg/dL (0.5-0.9); GLOMERULAR FILTRATION RATE > 60 mL/min (>60); HEMOLYSIS 6; POTASSIUM 4.1 mEQ/L (3.4-4.9); SODIUM 139 mEQ/L (135-145)
[2016-10-04 08:30] VITALS: BP 132/73
--- NOTE | 2016-10-04 09:11 | Consultation ---
History of Present Illness General Date patient seen: Oct 04, 2016 Chief Complaint: Pain Present Illness Allergies: Coded Allergies: No Known Allergies (Unverified , 10/01/16) Patient History Healthcare decision maker Resuscitation status Full Code Advanced Directive on File Physical Exam Last 24 Hour Vital Signs Date Time Temp Pulse Resp B/P Pulse Ox O2 Delivery O2 Flow Rate FiO2 10/04/16 04:00 98.2 85 18 119/69 96 Room Air 10/04/16 04:00 16 10/04/16 00:00 97.3 74 18 128/76 100 Room Air 10/04/16 00:00 18 10/03/16 20:06 18 10/03/16 20:00 97.2 83 18 109/62 90 Room Air 10/03/16 19:02 18 10/03/16 18:36 98.0 10/03/16 18:34 98.0 10/03/16 18:33 98.0 10/03/16 18:30 16 10/03/16 18:15 16 10/03/16 18:00 98.0 75 14 124/70 100 Nasal Cannula 3.0 10/03/16 18:00 15 10/03/16 17:45 18 10/03/16 17:45 77 16 136/73 100 Nasal Cannula 3.0 10/03/16 17:30 98 20 129/78 100 Nasal Cannula 3.0 10/03/16 17:20 94 17 143/82 100 Nasal Cannula 3.0 10/03/16 17:15 96 18 117/85 100 Simple Mask 6.0 10/03/16 17:10 93 19 133/75 100 Simple Mask 6.0 10/03/16 17:07 101 12 100 10/03/16 17:05 98.7 102 16 129/78 100 Simple Mask 6.0 10/03/16 11:42 97.5 78 18 129/81 98 Room Air Intake and Output 10/03/16 10/04/16 19:00 07:00 Intake Total 1450 ml 1890 ml Output Total 30 ml 650 ml Balance 1420 ml 1240 ml Intake Oral 180 ml IV Total 1450 ml 1710 ml Output Urine Total 650 ml Estimated Blood Loss 30 ml # Voids 3 Laboratory Tests Test 10/04/16 05:20 White Blood Count 11.5 K/UL (4.8-10.8) H Red Blood Count 3.86 M/UL (4.20-5.40) L Hemoglobin 11.6 G/DL (12.0-16.0) L Hematocrit 34.2 % (37.0-47.0) L Mean Corpuscular Volume 89 FL (80-99) Mean Corpuscular Hemoglobin 30.1 PG (27.0-31.0) Mean Corpuscular Hemoglobin Concent 33.9 G/DL (32.0-36.0) Red Cell Distribution Width 11.3 % (11.6-14.8) L Platelet Count 278 K/UL (150-450) Mean Platelet Volume 7.4 FL (6.5-10.1) Neutrophils (%) (Auto) 77.6 % (45.0-75.0) H Lymphocytes (%) (Auto) 16.0 % (20.0-45.0) L Monocytes (%) (Auto) 5.7 % (1.0-10.0) Eosinophils (%) (Auto) 0.5 % (0.0-3.0) Basophils (%) (Auto) 0.3 % (0.0-2.0) Sodium Level 139 mEQ/L (135-145) Potassium Level 4.1 mEQ/L (3.4-4.9) Chloride Level 99 mEQ/L (98-107) Carbon Dioxide Level 26 mEQ/L (20-30) Anion Gap 14 (5-15) Blood Urea Nitrogen 10 mg/dL (7-23) Creatinine 0.7 mg/dL (0.5-0.9) Estimat Glomerular Filtration Rate > 60 mL/min (>60) Glucose Level 108 mg/dL (74-106) H Calcium Level 9.2 mg/dL (8.6-10.2) Height (Feet): 5 Height (Inches): 5.00 Weight (Pounds): 140 Medications Current Medications Medications (Trade) Dose Ordered Sig/Vanessa Route PRN Reason Start Time Stop Time Status Last Admin Dose Admin Acetaminophen (Tylenol) 650 mg Q4H PRN ORAL Mild Pain (Pain Scale 1-3) 10/01/16 18:45 10/31/16 18:44 10/02/16 16:30 Acetaminophen (Tylenol) 650 mg Q4H PRN ORAL T>100.5 10/01/16 18:45 10/31/16 18:44 Al Hydroxide/Mg Hydroxide (Mylanta II) 30 ml Q6H PRN ORAL dyspepsia 10/01/16 18:45 10/31/16 18:44 Ampicillin Sodium/ Sulbactam Sodium/ Sodium Chloride (Unasyn/Sodium Chloride) 110 ml @ 220 mls/hr Q6HR IVPB 10/02/16 00:00 10/09/16 00:00 10/04/16 05:33 Bisacodyl (Dulcolax) 10 mg HSPRN PRN RECTAL Constipation 10/01/16 21:00 10/31/16 20:59 Dextrose STAT PRN IV Hypoglycemia 10/01/16 18:45 10/31/16 18:44 Diphenhydramine HCl (Benadryl) 25 mg Q6H PRN ORAL Itching/Pruritis 10/01/16 18:45 10/31/16 18:44 Docusate Sodium (Colace) 100 mg EVERY 12 HOURS ORAL 10/01/16 21:00 10/31/16 20:59 10/03/16 20:58 Heparin Sodium (Porcine) 5000 units 5,000 units Q8H SUBQ 10/04/16 06:00 11/03/16 05:59 10/04/16 05:34 Hydromorphone HCl (Dilaudid) 2 mg Q3H PRN SUBQ SEVERE BREAKTHROUGH PAIN 7-10 10/03/16 20:00 10/10/16 19:59 Hydromorphone HCl (COURTROOM DEPUTY Dilaudid) 30 ml @ 0 mls/hr Q24H PRN IV For Pain 10/03/16 15:45 10/05/16 15:44 10/03/16 17:45 Lactated Ringer's (Lactated Ringer's 1000ml) 1,000 ml @ 125 mls/hr Q8H IV 10/03/16 16:45 11/02/16 16:44 10/04/16 03:25 Lorazepam (Ativan) 1 mg Q4H PRN ORAL For Anxiety 10/01/16 18:45 10/08/16 18:44 10/03/16 12:41 Magnesium Hydroxide (Mom) 30 ml HSPRN PRN ORAL Constipation 10/01/16 18:45 10/31/16 18:44 Miscellaneous Medication (COURTROOM DEPUTY Rate Change) 1 ea DAILYPRN PRN MISC rate change 10/03/16 15:45 10/05/16 15:44 Miscellaneous Medication 1 ea 1 ea Q8HR@07,15,23 MISC 10/03/16 23:00 10/05/16 22:59 10/04/16 07:16 Ondansetron HCl (Zofran) 4 mg Q6H PRN IVP Nausea & Vomiting 10/01/16 18:45 10/31/16 18:44 Polyethylene Glycol (Miralax) 17 gm HSPRN PRN ORAL Constipation 10/01/16 21:00 10/31/16 20:59 Temazepam (Restoril) 15 mg HSPRN PRN ORAL Insomnia 10/01/16 21:00 10/08/16 20:59 Assessment/Plan Assessment/Plan (1) B/L buttock and back soft tissue necrosis, cellulitis (2) S/p staged debridement of b/l buttock and back necrotic soft tissue, flap delay and vac placement (3) Intractable pain Seen dictated ROSEANN WANG Oct 04, 2016 09:11
[2016-10-04] MEDS ORDERED: Norco 10mg/325mg tab ORAL PRN (09:15)
[2016-10-04] MEDS: Docusate 100mg cap ORAL SCH ×2 (09:54→22:08)
--- NOTE | 2016-10-04 10:32 | 48 Hour Post Anesthesia Eval ---
Post Anesthesia Evaluation Procedure: Debridement of soft tissue necrosis Date of Evaluation: Oct 04, 2016 Time of Evaluation: 10:40 Blood Pressure Systolic: 132 0: 73 Pulse Rate: 94 Respiratory Rate: 19 Temperature (Fahrenheit): 97.7 O2 Sat by Pulse Oximetry: 96 Airway: patent Nausea: No Vomiting: No Pain Intensity: 2 If pain is > 6 Comment: Patient required bolus dose. Instructed her how to use MANAGER PROJECT MANAGEMENT. Hydration Status: adequate Cardiopulmonary Status: Stable Mental Status/LOC: patient returned to baseline - She was not using MANAGER PROJECT MANAGEMENT correctly. Instructed her how to use MANAGER PROJECT MANAGEMENT Follow-up Care/Observations: As per surgery Post-Anesthesia Complications: No anesthetic complication Follow-up care needed: N/A EDDA URBINA M.D. Oct 04, 2016 10:32
[2016-10-04 12:00] VITALS: BP 127/68
--- NOTE | 2016-10-04 15:05 | General Progress Note ---
Progress Note Progress Note Pt doing very well post-op; reports resolution of pre-op symptoms AF/VSS H/H appropriate PE: VAC in place and functioning VAC output appropriate flaps viable (-) signs infection (-) collections A/P 1. f/c villegas 2. OOB w/ assistance 3. cont abx 4.daily cbc/bmp 5. cont vac and dvt ppx 6. to OR Thur for stage 2/closure 7. frequent position changes 8. type and cross one unit PRBC for possible blood xfusion during second surgery 9. 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 Oct 04, 2016 15:05
[2016-10-04 16:00] VITALS: BP 128/75
--- NOTE | 2016-10-04 17:40 | General Progress Note ---
Assessment/Plan Problem List: (1) Intractable back pain Assessment & Plan: s/p I+D of buttocks, POD#1 Pain control Supp care f/u expedited workup of severe low back pain, s/p gluteal silicone injection, and lab workup to r/o AROLDO syndrome given classical symptoms and presentation urine neg f/u blood cultures Cont IV unasyn A total of 31 mins of additional time was spent with this patient beyond the normal face to face time included in the visit ICD Codes: M54.9 - Dorsalgia, unspecified SNOMED: [id number] Subjective Date patient seen: Oct 04, 2016 Time patient seen: 17:38 ROS Limited/Unobtainable: No Constitutional: Denies: chills, diaphoresis, fever, malaise, no symptoms, other , weakness HEENT: Denies: blurred vision, double vision, ear discharge, ear pain, eye pain , mouth pain, mouth swelling, no symptoms, nose congestion, nose pain, other, tearing, throat pain, throat swelling Cardiovascular: Denies: chest pain, edema, irregular heart rate, lightheadedness, no symptoms, other, palpitations, syncope Respiratory: Denies: SOB at rest, SOB with excertion, cough, no symptoms, orthopnea, other, shortness of breath, sputum, stridor, wheezing Gastrointestinal/Abdominal: Denies: abdomen distended, abdominal pain, black stools, blood in stool, constipated, diarrhea, difficulty swallowing, nausea, no symptoms, other, poor appetite, poor fluid intake, rectal bleeding, tarry stools, vomiting Genitourinary: Denies: burning, discharge, flank pain, frequency, hematuria, incontinence, no symptoms, other, pain, urgency Neurologic/Psychiatric: Denies: anxiety, depressed, emotional problems, headache, no symptoms, numbness, other, paresthesia, pre-existing deficit, seizure, tingling, tremors, weakness Endocrine: Denies: excessive sweating, flushing, increased hunger, increased thirst, increased urine, intolerance to cold, intolerance to heat, no symptoms, other, unexplained weight gain, unexplained weight loss Hematologic/Lymphatic: Denies: anemia, easy bleeding, easy bruising, no symptoms, other Allergies: Coded Allergies: No Known Allergies (Unverified , 10/01/16) Subjective s/p I+D, POD#1, no periop or postop complications. No chest pain or dyspnea, postop pain well controlled. Objective Last 24 Hour Vital Signs Date Time Temp Pulse Resp B/P Pulse Ox O2 Delivery O2 Flow Rate FiO2 10/04/16 16:00 98.4 82 22 128/75 97 Room Air 10/04/16 14:02 98.1 10/04/16 12:00 98.1 77 20 127/68 97 Room Air 10/04/16 12:00 16 10/04/16 10:42 97.7 10/04/16 10:32 94 19 96 10/04/16 08:30 97.7 94 19 132/73 96 Room Air 10/04/16 08:00 16 10/04/16 04:00 98.2 85 18 119/69 96 Room Air 10/04/16 04:00 16 10/04/16 00:00 97.3 74 18 128/76 100 Room Air 10/04/16 00:00 18 10/03/16 20:06 18 10/03/16 20:00 97.2 83 18 109/62 90 Room Air 10/03/16 19:02 18 10/03/16 18:36 98.0 10/03/16 18:34 98.0 10/03/16 18:33 98.0 10/03/16 18:30 16 10/03/16 18:15 16 10/03/16 18:00 98.0 75 14 124/70 100 Nasal Cannula 3.0 10/03/16 18:00 15 10/03/16 17:45 18 10/03/16 17:45 77 16 136/73 100 Nasal Cannula 3.0 Intake and Output 10/03/16 10/04/16 19:00 07:00 Intake Total 1450 ml 1890 ml Output Total 30 ml 650 ml Balance 1420 ml 1240 ml Intake Oral 180 ml IV Total 1450 ml 1710 ml Output Urine Total 650 ml Estimated Blood Loss 30 ml # Voids 3 Laboratory Tests 10/04/16 05:20: White Blood Count 11.5H, Red Blood Count 3.86L, Hemoglobin 11.6L, Hematocrit 34.2L, Mean Corpuscular Volume 89, Mean Corpuscular Hemoglobin 30.1, Mean Corpuscular Hemoglobin Concent 33.9, Red Cell Distribution Width 11.3L, Platelet Count 278, Mean Platelet Volume 7.4, Neutrophils (%) (Auto) 77.6H, Lymphocytes (%) (Auto) 16.0L, Monocytes (%) (Auto) 5.7, Eosinophils (%) (Auto) 0.5, Basophils (%) (Auto) 0.3, Sodium Level 139, Potassium Level 4.1, Chloride Level 99, Carbon Dioxide Level 26, Anion Gap 14, Blood Urea Nitrogen 10, Creatinine 0.7, Estimat Glomerular Filtration Rate > 60, Glucose Level 108H, Calcium Level 9.2 Height (Feet): 5 Height (Inches): 5.00 Weight (Pounds): 140 General Appearance: WD/WN, no apparent distress, alert EENT: PERRL/EOMI Neck: non-tender, normal alignment, supple Cardiovascular: normal peripheral pulses, normal rate, regular rhythm, no gallop/murmur, no JVD Respiratory/Chest: chest wall non-tender, lungs clear, normal breath sounds, no respiratory distress Abdomen: soft, no organomegaly, no mass Extremities: normal range of motion, non-tender, normal inspection, no calf tenderness Edema: no edema noted Arm (L), no edema noted Arm (R), no edema noted Leg (L), no edema noted Leg (R), no edema noted Pedal (L), no edema noted Pedal (R), no edema noted Generalized Neurologic: alert, oriented x 3, responsive, normal mood/affect Skin: normal pigmentation, warm/dry, no diaphoresis DAVID TURNER Oct 04, 2016 17:40
[2016-10-04 20:00] VITALS: BP 117/55
[2016-10-04] MEDS: PCA HYDROmorphone 1mg/ml 30 ML IV PRN (20:23)
--- NOTE | 2016-10-04 23:28 | Consultation ---
DATE OF CONSULTATION: 10/04/2016 PAIN MANAGEMENT CONSULTATION CONSULTING PHYSICIAN: Maame Kelly M.D. REFERRING PHYSICIAN: Jannette Gamble M.D. CHIEF COMPLAINT: Buttock and back pain. HISTORY OF PRESENT ILLNESS: This is a 26-year-old female, who is being seen on the Medical/Surgical floor of [facility] for initial pain management consultation. The patient is reporting that she has been having back and buttock pain due to necrosis and cellulitis status post staged debridement. At this time, the patient is on PURCHASING SPECIALIST Dilaudid 0.2 mg lock-out interval every six minutes with Dilaudid 2 mg subcutaneous every three hours as needed for severe breakthrough pain. However, the patient continued to have pain at this time. I educated the patient on using the PURCHASING SPECIALIST Dilaudid and the patient seems to understanding and will use it as needed. PAST MEDICAL HISTORY: Denies. PAST SURGICAL HISTORY: Denies. MEDICATIONS: The patient does not take pain medications as an outpatient. ALLERGIES: No known drug allergies. SOCIAL HISTORY: Denies smoking, drinking, or IV drug abuse. REVIEW OF SYSTEMS: Denies rash, fever, chills, sweating, dizziness, drowsiness, blurred vision, sore throat, or change in weight. No nausea, vomiting, diarrhea, or blood in the stool or urine. No bowel or bladder incontinence. No dysuria. She is complaining of back and buttock pain. PHYSICAL EXAMINATION: GENERAL: Alert, awake, and oriented x3. VITAL SIGNS: Blood pressure 119/69, heart rate is 85, oxygen saturation is 92%, respiratory rate is 18, and temperature is 98.2 degrees Fahrenheit. Height is 5 feet. Weight 140 pounds. HEENT: PERRLA. NECK: Range of motion is full in all directions. No tenderness to paracervical muscles. No adenopathy. LUNGS: Clear. HEART: S1 and S2, regular. ABDOMEN: Benign. BACK: Range of motion is decreased in flexion and extension with tenderness to paraspinal muscles with bandages noted. Wound VAC applied at the site of the buttocks. EXTREMITIES: Upper extremity motion is full in all directions. Motor is intact. No cyanosis. No clubbing. No edema. Sensory is intact. Reflexes are not obtainable. No adenopathy. Lower extremity range of motion is decreased due to the patient's pain and condition. Motor is intact. No cyanosis. No clubbing. No edema. Sensory is intact. Reflexes are not obtainable. No adenopathy. ASSESSMENT AND PLAN: This is a 26-year-old female with bilateral buttock and back pain with necrosis and cellulitis status post staged debridement and flap delay with wound VAC placement, intractable pain. The patient will be continued on the PURCHASING SPECIALIST Dilaudid and Dilaudid subcutaneous. We will start the patient on [place] 10/ 325 mg every four hours as needed for moderate pain and start the patient on Neurontin 100 mg tablet three times a day. The patient was discussed with Dr. Kelly and Dr. Kelly concurred. We will follow the patient. Thank you very much for the courtesy of this consultation. Maame Kelly M.D. AJ Mcdermott DR: ARTUR JOB#: [id number] CC: SHERI
[2016-10-05] VITALS: BP 124/69
[2016-10-05] MEDS: LR 1000ml 1,000 ML IV SCH ×3 (01:27→17:08)
[2016-10-05 04:00] VITALS: BP 120/66
[2016-10-05] MEDS: Unasyn 3gm/NS 110ml IVPB SCH ×6 (05:30→17:09)
[2016-10-05] MEDS: Heparin 5000 units/ml inj SUBQ SCH ×3 (05:31→22:00)
[2016-10-05] MEDS: PCA shift volume MISC SCH ×3 (07:07→23:00)
[2016-10-05 07:31] LABS: BASOPHILS % (AUTO) 0.4 % (0.0-2.0); EOSINOPHILS % (AUTO) 0.6 % (0.0-3.0); LYMPHOCYTES % (AUTO) 22.3 % (20.0-45.0); MEAN CORPUSCULAR HEMOGLOBIN 31.4 PG (27.0-31.0); MEAN CORPUSCULAR HGB CONC 35.3 G/DL (32.0-36.0); MEAN CORPUSCULAR VOLUME 89 FL (80-99); MEAN PLATELET VOLUME 6.8 FL (6.5-10.1); MONOCYTES % (AUTO) 8.1 % (1.0-10.0); NEUTROPHILS % (AUTO) 68.6 % (45.0-75.0); PLATELET COUNT 228 K/UL (150-450); RED BLOOD COUNT 3.63 M/UL (4.20-5.40); RED CELL DISTRIBUTION WIDTH 11.4 % (11.6-14.8); WHITE BLOOD COUNT 11.7 K/UL (4.8-10.8)
[2016-10-05 07:44] LABS: ANION GAP 13 (5-15); CALCIUM 9.1 mg/dL (8.6-10.2); CARBON DIOXIDE 26 mEQ/L (20-30); CHLORIDE 102 mEQ/L (98-107); CREATININE 0.6 mg/dL (0.5-0.9); GLOMERULAR FILTRATION RATE > 60 mL/min (>60); HEMOLYSIS 7; POTASSIUM 3.8 mEQ/L (3.4-4.9); SODIUM 141 mEQ/L (135-145)
--- NOTE | 2016-10-05 08:06 | General Progress Note ---
Assessment/Plan Assessment/Plan (1) B/L buttock and back soft tissue necrosis, cellulitis (2) S/p staged debridement of b/l buttock and back necrotic soft tissue, flap delay and vac placement (3) Intractable pain The patient will continue on the ICE SCRAPER Dilaudid, Dilaudid IV SubQ, [place] and Neurontin The patient was discussed with Dr. Kelly and Dr. Kelly concurred. Subjective Date patient seen: Oct 05, 2016 Time patient seen: 07:30 - am Allergies: Coded Allergies: No Known Allergies (Unverified , 10/01/16) Subjective REVIEW OF SYSTEMS: Denies rash, fever, chills, sweating, dizziness, drowsiness, blurred vision, sore throat, or change in her weight. No shortness of breath or chest pain. No nausea, vomiting, diarrhea, or blood in the stool or urine. No bowel or bladder incontinence. No dysuria. Complaining of back and buttock pain. SUBJECTIVE: Pt is in bed laying on her stomach, pain has been tolerated well and is a 4/10. Objective Last 24 Hour Vital Signs Date Time Temp Pulse Resp B/P Pulse Ox O2 Delivery O2 Flow Rate FiO2 10/05/16 04:00 98.2 88 18 120/66 96 Room Air 10/05/16 04:00 18 10/05/16 00:00 18 10/05/16 00:00 98.4 93 18 124/69 96 Room Air 10/04/16 20:18 98.4 10/04/16 20:18 98.4 10/04/16 20:00 20 10/04/16 20:00 98.4 89 22 117/55 99 Room Air 10/04/16 16:00 20 10/04/16 16:00 98.4 82 22 128/75 97 Room Air 10/04/16 12:00 98.1 77 20 127/68 97 Room Air 10/04/16 12:00 16 10/04/16 10:42 97.7 10/04/16 10:32 94 19 96 10/04/16 08:30 97.7 94 19 132/73 96 Room Air Intake and Output 10/04/16 10/05/16 19:00 07:00 Intake Total 1720 ml 2055 ml Output Total 800 ml 75 ml Balance 920 ml 1980 ml Intake Oral 360 ml 720 ml IV Total 1360 ml 1335 ml Output Urine Total 800 ml Drainage Total 75 ml # Voids 6 Laboratory Tests 10/05/16 06:00: White Blood Count 11.7H, Red Blood Count 3.63L, Hemoglobin 11.4L, Hematocrit 32.3L, Mean Corpuscular Volume 89, Mean Corpuscular Hemoglobin 31.4H, Mean Corpuscular Hemoglobin Concent 35.3, Red Cell Distribution Width 11.4L, Platelet Count 228, Mean Platelet Volume 6.8, Neutrophils (%) (Auto) 68.6, Lymphocytes (%) (Auto) 22.3, Monocytes (%) (Auto) 8.1, Eosinophils (%) (Auto) 0.6, Basophils (%) (Auto) 0.4, Sodium Level 141, Potassium Level 3.8, Chloride Level 102, Carbon Dioxide Level 26, Anion Gap 13, Blood Urea Nitrogen 9, Creatinine 0.6, Estimat Glomerular Filtration Rate > 60, Glucose Level 84, Calcium Level 9.1 Height (Feet): 5 Height (Inches): 5.00 Weight (Pounds): 140 Objective PHYSICAL EXAMINATION: GENERAL: Alert, awake, and oriented x3. HEENT: PERRLA. NECK: Range of motion is full in all directions. No tenderness to the paracervical muscles. No adenopathy. LUNGS: Clear. HEART: Regular. ABDOMEN: Benign. BACK: Range of motion is decreased in flexion and extension with tenderness to paraspinal muscles with wound VAC seen and placed with tenderness to palpation on the buttock area. EXTREMITIES: No cyanosis. No clubbing. No edema. NEURO: No changes. ROSEANN WANG Oct 05, 2016 08:06
[2016-10-05] MEDS ORDERED: Rate Change PCA 1 Each MISC PRN (08:15)
[2016-10-05] MEDS: Docusate 100mg cap ORAL SCH ×2 (08:30→20:45)
[2016-10-05 08:34] VITALS: BP 118/63
[2016-10-05] MEDS: LORazepam 1mg tab ORAL PRN (08:37)
[2016-10-05 09:35] LABS: A/G RATIO 1.4 (0.7-1.7); ABNORMAL PROTEIN BAND 1 Not Observed g/dL (Not Observed); ALBUMIN 3.8 g/dL (2.9-4.4); ALPHA-1 GLOBULIN 0.1 g/dL (0.0-0.4); ALPHA-2 GLOBULIN 0.5 g/dL (0.4-1.0); ANGIOTENSIN CONVERTING ENZYME 60 U/L (14-82); BETA GLOBULIN 0.8 g/dL (0.7-1.3); CD3 ABSOLUTE 2179 /uL (622-2402); CD4 ABSOLUTE 1075 /uL (359-1519); CD8 ABSOLUTE 929 /uL (109-897); GAMMA GLOBULIN 1.2 g/dL (0.4-1.8); GLOBULIN, TOTAL 2.7 g/dL (2.2-3.9); IMMUNCOMPLEX BY C1Q BINDING < 1.2 ug Eq/mL (.); LYMPHOCYTES ABSOLUTE 2.7 x10E3/uL (0.7-3.1); LYMPHS 30 % (.); SS-B/La SJOGRENS ANTIBODY <0.2 AI (0.0-0.9); SSA/Ro SJOGRENS ANTIBODY <0.2 AI (0.0-0.9); TOTAL PROTEIN 6.5 g/dL (6.0-8.5); WBC 9.3 x10E3/uL (3.4-10.8)
[2016-10-05 09:36] LABS: IMMUNOGLOBULIN A 209 mg/dL (87-352); IMMUNOGLOBULIN G 1186 mg/dL (700-1600); IMMUNOGLOBULIN M 242 mg/dL (26-217)
--- NOTE | 2016-10-05 10:52 | General Progress Note ---
Progress Note Progress Note Pt without and c/o (+) OOB AF/VSS H/H stable PE: buttock flaps and back flap viable (-) collections (-) signs infection VACs functioning A/P 1. repeat am CBC; type and cross 1 U prbc 2. OOB, DVT ppx; Abx 3. NPO after MN; IVF after MN 4. to OR Thur for staged debridement of b/l buttocks necrotic soft tissue and flap closure 5. freq position changes Sonia Soliman M.D. Oct 05, 2016 10:52
[2016-10-05 12:14] VITALS: BP 107/56
--- NOTE | 2016-10-05 13:11 | Anethesia Preoperative Eval ---
Anesthesia Pre-op PMH/ROS General Date of Evaluation: Oct 05, 2016 Anesthesiologist: Armando ASA Score: ASA 1 Mallampati Score Class I : Soft palate, uvula, fauces, pillars visible Class II: Soft palate, uvula, fauces visible Class III: Soft palate, base of uvula visible Class IV: Only hard plate visible Mallampati Classification: Class I Surgeon: Jourdan Diagnosis: Necrotic soft tissue abscess low back/buttocks Surgical Procedure: Stage 2 debriedment and closure of soft tissue abscess low back/buttocks Anesthesia History: none Family History: no anesthesia problems Allergies: Coded Allergies: No Known Allergies (Unverified , 10/01/16) Medications: see eMAR Past Medical History Cardiovascular: Denies: CAD, HTN, NH, arrhythmia, other, valve dz Pulmonary: Denies: COPD, EDNA, asthma, other Gastrointestinal/Genitourinary: Denies: CRI, ESRD, GERD, other Neurologic/Psychiatric: Denies: CVA, TIA, dementia, depression/anxiety, other Endocrine: Denies: DM, hypothyroidism, other, steroids HEENT: Denies: NENANA (L), NENANA (R), cataract (L), cataract (R), glaucoma, other Hematology/Immune: Denies: DVT, anemia, bleeding disorder, other Musculoskeletal/Integumentary: Denies: DDD, DJD, OA, RA, edema, other PSxH Narrative: Kidney stone excision, I&D of necrotic soft tissue abscess low back/buttocks Anesthesia Pre-op Phys. Exam Physician Exam Last Vital Signs Date Time Temp Pulse Resp B/P Pulse Ox O2 Delivery O2 Flow Rate FiO2 10/05/16 12:14 98.2 94 20 107/56 97 Room Air 10/03/16 18:00 3.0 Constitutional: NAD Cardiovascular: RRR Respiratory: CTA Airway Exam Mallampati Score: Class I MO: full ROM: full Teeth: intact Anesthesia Pre-op A/P Labs Hematology Test 10/05/16 06:00 White Blood Count 11.7 K/UL (4.8-10.8) H Red Blood Count 3.63 M/UL (4.20-5.40) L Hemoglobin 11.4 G/DL (12.0-16.0) L Hematocrit 32.3 % (37.0-47.0) L Mean Corpuscular Volume 89 FL (80-99) Mean Corpuscular Hemoglobin 31.4 PG (27.0-31.0) H Mean Corpuscular Hemoglobin Concent 35.3 G/DL (32.0-36.0) Red Cell Distribution Width 11.4 % (11.6-14.8) L Platelet Count 228 K/UL (150-450) Mean Platelet Volume 6.8 FL (6.5-10.1) Neutrophils (%) (Auto) 68.6 % (45.0-75.0) Lymphocytes (%) (Auto) 22.3 % (20.0-45.0) Monocytes (%) (Auto) 8.1 % (1.0-10.0) Eosinophils (%) (Auto) 0.6 % (0.0-3.0) Basophils (%) (Auto) 0.4 % (0.0-2.0) Chemistry Test 10/05/16 06:00 Sodium Level 141 mEQ/L (135-145) Potassium Level 3.8 mEQ/L (3.4-4.9) Chloride Level 102 mEQ/L (98-107) Carbon Dioxide Level 26 mEQ/L (20-30) Anion Gap 13 (5-15) Blood Urea Nitrogen 9 mg/dL (7-23) Creatinine 0.6 mg/dL (0.5-0.9) Estimat Glomerular Filtration Rate > 60 mL/min (>60) Glucose Level 84 mg/dL (74-106) Calcium Level 9.1 mg/dL (8.6-10.2) Risk Assessment & Plan Assessment: ASA I Plan: GA-ETT Status Change Before Surgery: No Pre-Antibiotics Drug: JERAMIE HENDRICKSON M.D. Oct 05, 2016 13:11
[2016-10-05] MEDS ORDERED: PCA HYDROmorphone 1mg/ml 30 ML IV PRN (15:45)
[2016-10-05 16:00] VITALS: BP 122/72
--- NOTE | 2016-10-05 19:44 | General Progress Note ---
Assessment/Plan Problem List: (1) Intractable back pain Assessment & Plan: s/p I+D of buttocks, POD#2 Pain control Supp care f/u expedited workup of severe low back pain, s/p gluteal silicone injection, and lab workup to r/o AROLDO syndrome given classical symptoms and presentation urine neg f/u blood cultures Cont IV unasyn A total of 31 mins of additional time was spent with this patient beyond the normal face to face time included in the visit ICD Codes: M54.9 - Dorsalgia, unspecified SNOMED: 912813325 Subjective Date patient seen: Oct 05, 2016 Time patient seen: 19:43 ROS Limited/Unobtainable: No Allergies: Coded Allergies: No Known Allergies (Unverified , 10/01/16) Subjective s/p I+D, POD#2, no periop or postop complications. No chest pain or dyspnea, postop pain well controlled. Objective Last 24 Hour Vital Signs Date Time Temp Pulse Resp B/P Pulse Ox O2 Delivery O2 Flow Rate FiO2 10/05/16 17:00 18 10/05/16 16:00 97.9 94 18 122/72 98 Room Air 10/05/16 12:14 98.2 94 20 107/56 97 Room Air 10/05/16 11:45 18 10/05/16 08:34 98.2 110 20 118/63 97 Room Air 10/05/16 08:00 18 10/05/16 04:00 98.2 88 18 120/66 96 Room Air 10/05/16 04:00 18 10/05/16 00:00 18 10/05/16 00:00 98.4 93 18 124/69 96 Room Air 10/04/16 20:18 98.4 10/04/16 20:18 98.4 10/04/16 20:00 20 10/04/16 20:00 98.4 89 22 117/55 99 Room Air Intake and Output 10/04/16 10/05/16 19:00 07:00 Intake Total 1720 ml 2055 ml Output Total 800 ml 75 ml Balance 920 ml 1980 ml Intake Oral 360 ml 720 ml IV Total 1360 ml 1335 ml Output Urine Total 800 ml Drainage Total 75 ml # Voids 6 Laboratory Tests 10/05/16 06:00: White Blood Count 11.7H, Red Blood Count 3.63L, Hemoglobin 11.4L, Hematocrit 32.3L, Mean Corpuscular Volume 89, Mean Corpuscular Hemoglobin 31.4H, Mean Corpuscular Hemoglobin Concent 35.3, Red Cell Distribution Width 11.4L, Platelet Count 228, Mean Platelet Volume 6.8, Neutrophils (%) (Auto) 68.6, Lymphocytes (%) (Auto) 22.3, Monocytes (%) (Auto) 8.1, Eosinophils (%) (Auto) 0.6, Basophils (%) (Auto) 0.4, Sodium Level 141, Potassium Level 3.8, Chloride Level 102, Carbon Dioxide Level 26, Anion Gap 13, Blood Urea Nitrogen 9, Creatinine 0.6, Estimat Glomerular Filtration Rate > 60, Glucose Level 84, Calcium Level 9.1 Height (Feet): 5 Height (Inches): 5.00 Weight (Pounds): 140 General Appearance: WD/WN, no apparent distress, alert EENT: PERRL/EOMI Neck: non-tender, normal alignment, supple Cardiovascular: normal peripheral pulses, normal rate, regular rhythm, no gallop/murmur, no JVD Respiratory/Chest: chest wall non-tender, lungs clear, normal breath sounds, no respiratory distress, no accessory muscle use Abdomen: normal bowel sounds, non tender, soft Neurologic: alert, oriented x 3, responsive, normal mood/affect Skin: normal pigmentation, warm/dry, no diaphoresis DAVID TURNER Oct 05, 2016 19:44
[2016-10-05 20:00] VITALS: BP 140/74
--- NOTE | 2016-10-05 21:58 | Progress Note ---
DATE: 10/05/2016 FOLLOWUP NOTE: The patient is doing well and stable. No behavior issues. Calm. Complained of lower back pain, which is appropriate. No anxiety or agitation. Compliant with care. Cooperative and pleasant. Daria Hernandez M.D. DR: Shane JOB#: [id number] CC:
[2016-10-06] VITALS (12 sets, daily range): BP systolic 102–123; BP diastolic 45–70
[2016-10-06] MEDS: Unasyn 3gm/NS 110ml IVPB SCH ×8 (00:39→20:13)
[2016-10-06] MEDS: LR 1000ml 1,000 ML IV SCH ×4 (03:52→21:14)
[2016-10-06] MEDS: Heparin 5000 units/ml inj SUBQ SCH ×3 (06:00→21:13)
[2016-10-06 07:14] LABS: ANION GAP 11 (5-15); BASOPHILS % (AUTO) 0.5 % (0.0-2.0); CALCIUM 8.8 mg/dL (8.6-10.2); CARBON DIOXIDE 25 mEQ/L (20-30); CHLORIDE 106 mEQ/L (98-107); CREATININE 0.5 mg/dL (0.5-0.9); EOSINOPHILS % (AUTO) 1.4 % (0.0-3.0); GLOMERULAR FILTRATION RATE > 60 mL/min (>60); HEMOLYSIS 3; LYMPHOCYTES % (AUTO) 22.5 % (20.0-45.0); MEAN CORPUSCULAR HEMOGLOBIN 30.2 PG (27.0-31.0); MEAN CORPUSCULAR HGB CONC 34.1 G/DL (32.0-36.0); MEAN CORPUSCULAR VOLUME 89 FL (80-99); MEAN PLATELET VOLUME 7.6 FL (6.5-10.1); MONOCYTES % (AUTO) 7.5 % (1.0-10.0); NEUTROPHILS % (AUTO) 68.2 % (45.0-75.0); PLATELET COUNT 249 K/UL (150-450); RED BLOOD COUNT 3.62 M/UL (4.20-5.40); RED CELL DISTRIBUTION WIDTH 11.3 % (11.6-14.8); SODIUM 142 mEQ/L (135-145)
[2016-10-06] MEDS: PCA shift volume MISC SCH ×3 (07:20→23:24)
--- NOTE | 2016-10-06 08:43 | General Progress Note ---
Assessment/Plan Assessment/Plan (1) B/L buttock and back soft tissue necrosis, cellulitis (2) S/p staged debridement of b/l buttock and back necrotic soft tissue, flap delay and vac placement (3) Intractable pain The patient will continue on the CHILDREN'S TUTOR Dilaudid, Dilaudid IV SubQ, [place] and Neurontin The patient was discussed with Dr. Kelly and Dr. Kelly concurred. Subjective Date patient seen: Oct 06, 2016 Time patient seen: 07:15 - am Allergies: Coded Allergies: No Known Allergies (Unverified , 10/01/16) Subjective REVIEW OF SYSTEMS: Denies rash, fever, chills, sweating, dizziness, drowsiness, blurred vision, sore throat, or change in her weight. No shortness of breath or chest pain. No nausea, vomiting, diarrhea, or blood in the stool or urine. No bowel or bladder incontinence. No dysuria. Complaining of back and buttock pain. SUBJECTIVE: Pt is comfortable at this time and is looking forward to surgery today. Her pain is stable on the medications. Objective Last 24 Hour Vital Signs Date Time Temp Pulse Resp B/P Pulse Ox O2 Delivery O2 Flow Rate FiO2 10/06/16 08:00 82 19 112/65 98 Room Air 10/06/16 08:00 20 10/06/16 04:00 97.2 83 20 113/52 97 Room Air 10/06/16 04:00 20 10/06/16 00:00 98.2 75 20 118/70 99 Room Air 10/06/16 00:00 20 10/05/16 20:00 18 10/05/16 20:00 98.2 104 19 140/74 96 Room Air 10/05/16 16:00 18 10/05/16 16:00 97.9 94 18 122/72 98 Room Air 10/05/16 12:14 98.2 94 20 107/56 97 Room Air 10/05/16 11:45 18 Intake and Output 10/05/16 10/06/16 19:00 07:00 Intake Total 1680 ml 1525 ml Output Total 900 ml Balance 1680 ml 625 ml Intake Oral 460 ml 240 ml IV Total 1220 ml 1285 ml Output Urine Total 850 ml Drainage Total 30 ml Other 20 ml # Voids 2 2 Laboratory Tests 10/06/16 05:55: White Blood Count 10.0, Red Blood Count 3.62L, Hemoglobin 10.9L, Hematocrit 32.0L, Mean Corpuscular Volume 89, Mean Corpuscular Hemoglobin 30.2, Mean Corpuscular Hemoglobin Concent 34.1, Red Cell Distribution Width 11.3L, Platelet Count 249, Mean Platelet Volume 7.6, Neutrophils (%) (Auto) 68.2, Lymphocytes (%) (Auto) 22.5, Monocytes (%) (Auto) 7.5, Eosinophils (%) (Auto) 1.4, Basophils (%) (Auto) 0.5, Sodium Level 142, Potassium Level 4.0, Chloride Level 106, Carbon Dioxide Level 25, Anion Gap 11, Blood Urea Nitrogen 10, Creatinine 0.5, Estimat Glomerular Filtration Rate > 60, Glucose Level 92, Calcium Level 8.8 Height (Feet): 5 Height (Inches): 5.00 Weight (Pounds): 140 Objective PHYSICAL EXAMINATION: GENERAL: Alert, awake, and oriented x3. HEENT: PERRLA. NECK: Range of motion is full in all directions. No tenderness to the paracervical muscles. No adenopathy. LUNGS: Clear. HEART: Regular. ABDOMEN: Benign. BACK: Range of motion is decreased in flexion and extension with tenderness to paraspinal muscles with wound VAC seen and placed with tenderness to palpation on the buttock area. EXTREMITIES: No cyanosis. No clubbing. No edema. NEURO: No changes. ROSEANN WANG Oct 06, 2016 08:43
[2016-10-06] MEDS: Docusate 100mg cap ORAL SCH ×2 (08:50→21:00)
[2016-10-06] MEDS ORDERED: Bacitracin 50000 Units Vial ONE (13:55)
--- NOTE | 2016-10-06 14:39 | General Progress Note ---
Assessment/Plan Problem List: (1) Intractable back pain Assessment & Plan: s/p I+D of buttocks, POD#3 For stage 2 I+D today Pain control Supp care f/u expedited workup of severe low back pain, s/p gluteal silicone injection, and lab workup to r/o AROLDO syndrome given classical symptoms and presentation urine neg f/u blood cultures Cont IV unasyn A total of 31 mins of additional time was spent with this patient beyond the normal face to face time included in the visit ICD Codes: M54.9 - Dorsalgia, unspecified SNOMED: [id number] Subjective Date patient seen: Oct 06, 2016 Time patient seen: 14:38 ROS Limited/Unobtainable: No Constitutional: Denies: chills, diaphoresis, fever, malaise, no symptoms, other , weakness HEENT: Denies: blurred vision, double vision, ear discharge, ear pain, eye pain , mouth pain, mouth swelling, no symptoms, nose congestion, nose pain, other, tearing, throat pain, throat swelling Cardiovascular: Denies: chest pain, edema, irregular heart rate, lightheadedness, no symptoms, other, palpitations, syncope Respiratory: Denies: SOB at rest, SOB with excertion, cough, no symptoms, orthopnea, other, shortness of breath, sputum, stridor, wheezing Gastrointestinal/Abdominal: Denies: abdomen distended, abdominal pain, black stools, blood in stool, constipated, diarrhea, difficulty swallowing, nausea, no symptoms, other, poor appetite, poor fluid intake, rectal bleeding, tarry stools, vomiting Genitourinary: Denies: burning, discharge, flank pain, frequency, hematuria, incontinence, no symptoms, other, pain, urgency Neurologic/Psychiatric: Denies: anxiety, depressed, emotional problems, headache, no symptoms, numbness, other, paresthesia, pre-existing deficit, seizure, tingling, tremors, weakness Endocrine: Denies: excessive sweating, flushing, increased hunger, increased thirst, increased urine, intolerance to cold, intolerance to heat, no symptoms, other, unexplained weight gain, unexplained weight loss Hematologic/Lymphatic: Denies: anemia, easy bleeding, easy bruising, no symptoms, other Allergies: Coded Allergies: No Known Allergies (Unverified , 10/01/16) Subjective s/p I+D, POD#3, no periop or postop complications. No chest pain or dyspnea, postop pain well controlled. Objective Last 24 Hour Vital Signs Date Time Temp Pulse Resp B/P Pulse Ox O2 Delivery O2 Flow Rate FiO2 10/06/16 12:05 20 10/06/16 12:03 97.9 76 19 117/69 100 Room Air 10/06/16 08:00 82 19 112/65 98 Room Air 10/06/16 08:00 20 10/06/16 04:00 97.2 83 20 113/52 97 Room Air 10/06/16 04:00 20 10/06/16 00:00 98.2 75 20 118/70 99 Room Air 10/06/16 00:00 20 10/05/16 20:00 18 10/05/16 20:00 98.2 104 19 140/74 96 Room Air 10/05/16 16:00 18 10/05/16 16:00 97.9 94 18 122/72 98 Room Air Intake and Output 10/05/16 10/06/16 19:00 07:00 Intake Total 1680 ml 1650 ml Output Total 900 ml Balance 1680 ml 750 ml Intake Oral 460 ml 240 ml IV Total 1220 ml 1410 ml Output Urine Total 850 ml Drainage Total 30 ml Other 20 ml # Voids 2 2 Laboratory Tests 10/06/16 05:55: White Blood Count 10.0, Red Blood Count 3.62L, Hemoglobin 10.9L, Hematocrit 32.0L, Mean Corpuscular Volume 89, Mean Corpuscular Hemoglobin 30.2, Mean Corpuscular Hemoglobin Concent 34.1, Red Cell Distribution Width 11.3L, Platelet Count 249, Mean Platelet Volume 7.6, Neutrophils (%) (Auto) 68.2, Lymphocytes (%) (Auto) 22.5, Monocytes (%) (Auto) 7.5, Eosinophils (%) (Auto) 1.4, Basophils (%) (Auto) 0.5, Sodium Level 142, Potassium Level 4.0, Chloride Level 106, Carbon Dioxide Level 25, Anion Gap 11, Blood Urea Nitrogen 10, Creatinine 0.5, Estimat Glomerular Filtration Rate > 60, Glucose Level 92, Calcium Level 8.8 Height (Feet): 5 Height (Inches): 5.00 Weight (Pounds): 140 Objective General: alert, cooperative, no distress, appears stated age Head: normocephalic, without obvious abnormality, atraumatic Eyes: conjunctivae/corneas clear. PERRL, EOM's intact Throat: lips, mucosa, and tongue normal. MMM Neck: supple, symmetrical, trachea midline, and no JVD Lungs: clear to auscultation bilaterally Heart: regular rate and rhythm, S1, S2 normal, no murmur, click, rub or gallop Abdomen: soft, non-tender, non-distended, bowel sounds normal; no masses or organomegaly Extremities: extremities normal, atraumatic, no cyanosis or edema Pulses: 2+ and symmetric Skin: skin color, texture, turgor normal; no rashes or lesions Neurologic: grossly normal, no focal deficits DAVID TURNER Oct 06, 2016 14:39
[2016-10-06] MEDS ORDERED: Propofol 10mg/ml 20ml IV ONE (14:45)
[2016-10-06] MEDS ORDERED: Zemuron 50mg/5ml Inj IV ONE (14:45)
[2016-10-06] MEDS ORDERED: NS Irrig 1000ml ONE (14:45)
[2016-10-06] MEDS ORDERED: Lidocaine 1% MPF 10mg/ml 5ml ONE (14:45)
[2016-10-06] MEDS ORDERED: fentaNYL 250mcg/5ml ONE (14:45)
[2016-10-06] MEDS ORDERED: Glycopyrrolate 0.2mg/ml 1ml Vial ONE (14:45)
[2016-10-06] MEDS ORDERED: Dexamethasone 4mg/ml vial ONE (14:45)
[2016-10-06] MEDS ORDERED: LR 1000ml ONE (14:45)
[2016-10-06] MEDS ORDERED: Sterile Water Irrig 1000ml IRRIG ONE (14:45)
[2016-10-06] MEDS ORDERED: Neostigmine 1mg/ml 10ml Inj ONE (14:45)
[2016-10-06] MEDS ORDERED: NS Irrig 1000ml IRRIG ONE (14:50)
--- NOTE | 2016-10-06 14:53 | Pre-Procedure Note/Attestation ---
Pre-Procedure Note/Attestation Complete Prior to Procedure Planned Procedure: bilateral Indications for Procedure Pre-Operative Diagnosis: b/l buttock and back soft tissue necrosis, cellulitis Attestation I attest that I discussed the nature of the procedure; its benefits; risks and complications; and alternatives (and the risks and benefits of such alternatives ), prior to the procedure, with the patient (or the patient's legal ocean import representative). I attest that, if there was a reasonable possibility of needing a blood transfusion, the patient (or the patient's legal ocean import representative) was given the [facility] standardized written summary, pursuant to the Frederic Thelma Blood Safety Act ([place] Health and Safety Code # 1645, as amended). I attest that I re-evaluated the patient just prior to the surgery and that there has been no change in the patient's H&P, except as documented below: Sonia Soliman M.D. Oct 06, 2016 14:53
[2016-10-06] MEDS ORDERED: LR 1000ml 1,000 ML IVLG SCH (15:40)
[2016-10-06] MEDS ORDERED: Metoclopramide 10mg/2ml Inj IVP PRN (15:45)
[2016-10-06] MEDS ORDERED: Labetalol 5mg/ml 20ml vial IV PRN (15:45)
[2016-10-06] MEDS ORDERED: DiphenhydrAMINE 50mg/ml Inj IVP PRN (15:45)
[2016-10-06] MEDS ORDERED: Hydromorphone 0.5mg/0.5ml inj IVP PRN (15:45)
[2016-10-06] MEDS ORDERED: Meperidine 25mg/ml Inj IV PRN (15:45)
[2016-10-06] MEDS ORDERED: LORazepam Inj 2mg/ml 1ml IV PRN (15:45)
[2016-10-06] MEDS ORDERED: Oxycodone/Acetaminophen 5-325 ORAL PRN (15:45)
[2016-10-06] MEDS ORDERED: Norco 7.5mg/325mg tab ORAL PRN (15:45)
[2016-10-06] MEDS ORDERED: Norco 5mg/325mg tab ORAL PRN (15:45)
[2016-10-06] MEDS ORDERED: Atropine Inj 1mg/10ml Syr IV PRN (15:45)
[2016-10-06] MEDS ORDERED: Midazolam 2mg/2ml Inj IVP PRN (15:45)
[2016-10-06] MEDS ORDERED: fentaNYL 100 mcg/2 mL IV PRN (15:45)
--- NOTE | 2016-10-06 15:54 | Immediate Post-Op Evaluation ---
Immediate Post-Op Evalulation Immediate Post-Op Evalulation Procedure: Debridement of soft tissue necrosis buttock with closure Date of Evaluation: Oct 06, 2016 Pain Score (1-10): 3 Nausea: No Vomiting: No Complications 0 Patient Status: awake, reacts, patent, extubated, none Hydration Status: adequate Dru Gram Ancef IV Given Within 1 Hr of Incision: Yes Louie Whyte MD Oct 06, 2016 15:54
[2016-10-06] MEDS ORDERED: PCA HYDROmorphone 1mg/ml 30 ML IV PRN (16:00)
[2016-10-06] MEDS ORDERED: Rate Change PCA 1 Each MISC PRN (16:00)
--- NOTE | 2016-10-06 16:02 | Immediate Post-Op Evaluation ---
Immediate Post-Op Evalulation Immediate Post-Op Evalulation Procedure: Debridement of soft tissue necrosis buttock with closure Date of Evaluation: Oct 06, 2016 Time of Evaluation: 18:18 IV Fluids: 1000 LR Blood Products: 0 Estimated Blood Loss: 75 Urinary Output: 0 Blood Pressure Systolic: 123 Blood Pressure Diastolic: 63 Pulse Rate: 66 Respiratory Rate: 16 O2 Sat by Pulse Oximetry: 100 Temperature (Fahrenheit): 97.8 Pain Score (1-10): 3 Nausea: No Vomiting: No Complications 0 Patient Status: awake, reacts, patent, extubated, none Hydration Status: adequate Dru Gram Ancef IV Given Within 1 Hr of Incision: Yes Time Given: 15:06 Louie Whyte MD Oct 06, 2016 16:02
[2016-10-06] MEDS ORDERED: Acetaminophen (Non formulary) 100 ML IV ONE (16:30)
--- NOTE | 2016-10-06 18:04 | Operative Note - PDOC ---
Operative Note Operative Note Pre-op Diagnosis: b/l buttock and back soft tissue necrosis, cellulitis Procedure: staged debridement of b/l buttock and back necrotic soft tissue,advancement flap closuret Post-op Diagnosis: same as above Post-op Diagnosis: same as pre-op Surgeon: gris Lead Carpenter: piyush Anesthesiologist: amberly Anesthesia: general Specimen: yes Complications: none Condition: stable Estimated Blood Loss: volume - 250 Drains: SUPA Implant(s) used?: No Sonia Soliman M.D. Oct 06, 2016 18:04
[2016-10-07] VITALS: BP 100/49
[2016-10-07] MEDS: Unasyn 3gm/NS 110ml IVPB SCH ×8 (00:16→17:53)
[2016-10-07 04:00] VITALS: BP 93/58
[2016-10-07] MEDS: Heparin 5000 units/ml inj SUBQ SCH ×3 (05:32→22:00)
[2016-10-07] MEDS: PCA shift volume MISC SCH ×3 (07:00→23:00)
[2016-10-07 07:22] LABS: BASOPHILS % (AUTO) 0.3 % (0.0-2.0); EOSINOPHILS % (AUTO) 0.1 % (0.0-3.0); LYMPHOCYTES % (AUTO) 17.1 % (20.0-45.0); MEAN CORPUSCULAR HEMOGLOBIN 29.8 PG (27.0-31.0); MEAN CORPUSCULAR HGB CONC 33.4 G/DL (32.0-36.0); MEAN CORPUSCULAR VOLUME 89 FL (80-99); MEAN PLATELET VOLUME 7.4 FL (6.5-10.1); MONOCYTES % (AUTO) 6.7 % (1.0-10.0); NEUTROPHILS % (AUTO) 75.8 % (45.0-75.0); PLATELET COUNT 309 K/UL (150-450); RED BLOOD COUNT 3.62 M/UL (4.20-5.40); RED CELL DISTRIBUTION WIDTH 11.2 % (11.6-14.8); WHITE BLOOD COUNT 17.6 K/UL (4.8-10.8)
[2016-10-07 07:28] LABS: ANION GAP 13 (5-15); CALCIUM 9.1 mg/dL (8.6-10.2); CARBON DIOXIDE 25 mEQ/L (20-30); CHLORIDE 102 mEQ/L (98-107); CREATININE 0.5 mg/dL (0.5-0.9); GLOMERULAR FILTRATION RATE > 60 mL/min (>60); HEMOLYSIS 4; SODIUM 140 mEQ/L (135-145)
[2016-10-07 08:00] VITALS: BP 101/69
--- NOTE | 2016-10-07 09:45 | General Progress Note ---
Assessment/Plan Assessment/Plan (1) B/L buttock and back soft tissue necrosis, cellulitis (2) S/p staged debridement of b/l buttock and back necrotic soft tissue, flap advancement (3) Intractable pain The patient will continue on the TAILOR GARMENT FITTER Dilaudid, Dilaudid IV SubQ, [place] and Neurontin. A RX was written for [place] 10/325mg PO 1 tab Q4-6H PRN pain 30 tabs in anticipation for discharge. The patient was discussed with Dr. Kelly and Dr. Kelly concurred. Subjective Date patient seen: Oct 07, 2016 Time patient seen: 08:45 - am Allergies: Coded Allergies: No Known Allergies (Unverified , 10/01/16) Subjective REVIEW OF SYSTEMS: Denies rash, fever, chills, sweating, dizziness, drowsiness, blurred vision, sore throat, or change in her weight. No shortness of breath or chest pain. No nausea, vomiting, diarrhea, or blood in the stool or urine. No bowel or bladder incontinence. No dysuria. Complaining of back and buttock pain. SUBJECTIVE: She has been having more pain after second surgery but is comfortable on the medications. rating it a 4/10 and used 1mg of TAILOR GARMENT FITTER in last 24hrs. Objective Last 24 Hour Vital Signs Date Time Temp Pulse Resp B/P Pulse Ox O2 Delivery O2 Flow Rate FiO2 10/07/16 08:00 17 10/07/16 08:00 97.9 85 20 101/69 99 Room Air 10/07/16 04:00 17 10/07/16 04:00 97.6 72 18 93/58 93 Room Air 10/07/16 00:00 98.8 73 18 100/49 100 Nasal Cannula 2.0 10/07/16 00:00 18 10/06/16 20:00 97.3 60 18 115/60 100 Nasal Cannula 2.0 10/06/16 19:00 17 10/06/16 18:54 97.8 56 16 106/52 100 Nasal Cannula 3.0 10/06/16 18:45 56 14 102/54 100 Nasal Cannula 3.0 10/06/16 18:45 15 10/06/16 18:35 67 15 114/57 100 Nasal Cannula 3.0 10/06/16 18:34 14 10/06/16 18:25 59 19 105/57 100 Nasal Cannula 3.0 10/06/16 18:20 56 18 110/45 100 Nasal Cannula 3.0 10/06/16 18:15 62 15 110/45 100 Nasal Cannula 3.0 10/06/16 18:10 66 16 100 10/06/16 18:07 97.8 68 13 123/63 100 Simple Mask 6.0 10/06/16 12:05 20 10/06/16 12:03 97.9 76 19 117/69 100 Room Air Intake and Output 10/06/16 10/07/16 19:00 07:00 Intake Total 1952 ml 920 ml Output Total 105 ml 775 ml Balance 1847 ml 145 ml IV Total 1952 ml 920 ml Output Urine Total 600 ml Drainage Total 70 ml 165 ml Other 35 ml 10 ml # Voids 7 Laboratory Tests 10/07/16 05:25: White Blood Count 17.6#H, Red Blood Count 3.62L, Hemoglobin 10.8L, Hematocrit 32.2L, Mean Corpuscular Volume 89, Mean Corpuscular Hemoglobin 29.8, Mean Corpuscular Hemoglobin Concent 33.4, Red Cell Distribution Width 11.2L, Platelet Count 309, Mean Platelet Volume 7.4, Neutrophils (%) (Auto) 75.8H, Lymphocytes (%) (Auto) 17.1L, Monocytes (%) (Auto) 6.7, Eosinophils (%) (Auto) 0.1, Basophils (%) (Auto) 0.3, Sodium Level 140, Potassium Level 4.0, Chloride Level 102, Carbon Dioxide Level 25, Anion Gap 13, Blood Urea Nitrogen 6L, Creatinine 0.5, Estimat Glomerular Filtration Rate > 60, Glucose Level 105, Calcium Level 9.1 Height (Feet): 5 Height (Inches): 5.00 Weight (Pounds): 140 Objective PHYSICAL EXAMINATION: GENERAL: Alert, awake, and oriented x3. HEENT: PERRLA. NECK: Range of motion is full in all directions. No tenderness to the paracervical muscles. No adenopathy. LUNGS: Clear. HEART: Regular. ABDOMEN: Benign. BACK: Range of motion is decreased in flexion and extension with tenderness to paraspinal muscles with wound VAC seen and placed with tenderness to palpation on the buttock area. EXTREMITIES: No cyanosis. No clubbing. No edema. NEURO: No changes. ZEDNER,ROSEANN N. P.A. Oct 07, 2016 09:45
[2016-10-07] MEDS ORDERED: Rate Change PCA 1 Each MISC PRN (10:00)
[2016-10-07] MEDS: Docusate 100mg cap ORAL SCH ×2 (10:00→21:52)
[2016-10-07] MEDS ORDERED: PCA HYDROmorphone 1mg/ml 30 ML IV PRN (10:00)
[2016-10-07 12:00] VITALS: BP 114/65
[2016-10-07] MEDS: LR 1000ml 1,000 ML IV SCH ×2 (12:39→21:52)
[2016-10-07 16:00] VITALS: BP 115/55
--- NOTE | 2016-10-07 16:20 | General Progress Note ---
Progress Note Progress Note pt without any c/o AF/VSS PE: incisional VAC in place JPs appropriate SS (-) collections/signs of infection A/P. 1. daily CBC 2. OOB/ DVT ppx/cont Abx 3. SUPA teaching; cont all 5 SUPA's 4. will change to Provena Plus home incisional VAC prior to d/c 5. d/c home Sat/Sun with 2 weeks Cipro 500 PO BID and pain Rx 6. no showers until all drains are out 7. limit supine time to 4 hrs/24 hrs; minimal sitting 8. f/u out pt next Sat Sonia Soliman M.D. Oct 07, 2016 16:20
--- NOTE | 2016-10-07 17:01 | General Progress Note ---
Assessment/Plan Problem List: (1) Intractable back pain Assessment & Plan: s/p I+D of buttocks, POD#4 s/p stage 2 debridement POD#1 Pain control Supp care f/u expedited workup of severe low back pain, s/p gluteal silicone injection, and lab workup to r/o AROLDO syndrome given classical symptoms and presentation urine neg f/u blood cultures Cont IV unasyn A total of 31 mins of additional time was spent with this patient beyond the normal face to face time included in the visit ICD Codes: M54.9 - Dorsalgia, unspecified SNOMED: 115253815 Subjective Date patient seen: Oct 07, 2016 Time patient seen: 17:00 ROS Limited/Unobtainable: No Allergies: Coded Allergies: No Known Allergies (Unverified , 10/01/16) Subjective s/p I+D, POD#4, s/p stage 2 debridement POD#1, no periop or postop complications. No chest pain or dyspnea, postop pain well controlled. Objective Last 24 Hour Vital Signs Date Time Temp Pulse Resp B/P Pulse Ox O2 Delivery O2 Flow Rate FiO2 10/07/16 16:00 97.5 91 20 115/55 98 Room Air 10/07/16 16:00 18 10/07/16 13:45 97.9 10/07/16 12:00 98.2 81 20 114/65 98 Room Air 10/07/16 12:00 17 10/07/16 08:00 17 10/07/16 08:00 97.9 85 20 101/69 99 Room Air 10/07/16 04:00 17 10/07/16 04:00 97.6 72 18 93/58 93 Room Air 10/07/16 00:00 98.8 73 18 100/49 100 Nasal Cannula 2.0 10/07/16 00:00 18 10/06/16 20:00 97.3 60 18 115/60 100 Nasal Cannula 2.0 10/06/16 19:00 17 10/06/16 18:54 97.8 56 16 106/52 100 Nasal Cannula 3.0 10/06/16 18:45 56 14 102/54 100 Nasal Cannula 3.0 10/06/16 18:45 15 10/06/16 18:35 67 15 114/57 100 Nasal Cannula 3.0 10/06/16 18:34 14 10/06/16 18:25 59 19 105/57 100 Nasal Cannula 3.0 10/06/16 18:20 56 18 110/45 100 Nasal Cannula 3.0 10/06/16 18:15 62 15 110/45 100 Nasal Cannula 3.0 10/06/16 18:10 66 16 100 10/06/16 18:07 97.8 68 13 123/63 100 Simple Mask 6.0 Intake and Output 10/06/16 10/07/16 19:00 07:00 Intake Total 1952 ml 920 ml Output Total 105 ml 775 ml Balance 1847 ml 145 ml IV Total 1952 ml 920 ml Output Urine Total 600 ml Drainage Total 70 ml 165 ml Other 35 ml 10 ml # Voids 7 Laboratory Tests 10/07/16 05:25: White Blood Count 17.6#H, Red Blood Count 3.62L, Hemoglobin 10.8L, Hematocrit 32.2L, Mean Corpuscular Volume 89, Mean Corpuscular Hemoglobin 29.8, Mean Corpuscular Hemoglobin Concent 33.4, Red Cell Distribution Width 11.2L, Platelet Count 309, Mean Platelet Volume 7.4, Neutrophils (%) (Auto) 75.8H, Lymphocytes (%) (Auto) 17.1L, Monocytes (%) (Auto) 6.7, Eosinophils (%) (Auto) 0.1, Basophils (%) (Auto) 0.3, Sodium Level 140, Potassium Level 4.0, Chloride Level 102, Carbon Dioxide Level 25, Anion Gap 13, Blood Urea Nitrogen 6L, Creatinine 0.5, Estimat Glomerular Filtration Rate > 60, Glucose Level 105, Calcium Level 9.1 Height (Feet): 5 Height (Inches): 5.00 Weight (Pounds): 140 Objective General: alert, cooperative, no distress, appears stated age Head: normocephalic, without obvious abnormality, atraumatic Eyes: conjunctivae/corneas clear. PERRL, EOM's intact Throat: lips, mucosa, and tongue normal. MMM Neck: supple, symmetrical, trachea midline, and no JVD Lungs: clear to auscultation bilaterally Heart: regular rate and rhythm, S1, S2 normal, no murmur, click, rub or gallop Abdomen: soft, non-tender, non-distended, bowel sounds normal; no masses or organomegaly Extremities: extremities normal, atraumatic, no cyanosis or edema Pulses: 2+ and symmetric Skin: skin color, texture, turgor normal; no rashes or lesions Neurologic: grossly normal, no focal deficits DAVID TURNER Oct 07, 2016 17:01
[2016-10-07 19:00] VITALS: BP 112/62
[2016-10-08] MEDS: Unasyn 3gm/NS 110ml IVPB SCH ×8 (00:12→18:30)
[2016-10-08 00:23] VITALS: BP 116/61
[2016-10-08 04:11] VITALS: BP 120/60
[2016-10-08] MEDS: LR 1000ml 1,000 ML IV SCH ×2 (06:13→18:30)
[2016-10-08] MEDS: Heparin 5000 units/ml inj SUBQ SCH ×3 (06:18→22:00)
[2016-10-08 07:19] LABS: BASOPHILS % (AUTO) 0.3 % (0.0-2.0); EOSINOPHILS % (AUTO) 0.7 % (0.0-3.0); LYMPHOCYTES % (AUTO) 17.7 % (20.0-45.0); MEAN CORPUSCULAR HEMOGLOBIN 30.5 PG (27.0-31.0); MEAN CORPUSCULAR VOLUME 90 FL (80-99); MEAN PLATELET VOLUME 7.2 FL (6.5-10.1); MONOCYTES % (AUTO) 7.7 % (1.0-10.0); NEUTROPHILS % (AUTO) 73.5 % (45.0-75.0); PLATELET COUNT 290 K/UL (150-450); RED CELL DISTRIBUTION WIDTH 11.6 % (11.6-14.8); WHITE BLOOD COUNT 16.9 K/UL (4.8-10.8)
[2016-10-08 07:25] LABS: ANION GAP 12 (5-15); CALCIUM 8.9 mg/dL (8.6-10.2); CARBON DIOXIDE 28 mEQ/L (20-30); CHLORIDE 100 mEQ/L (98-107); CREATININE 0.6 mg/dL (0.5-0.9); GLOMERULAR FILTRATION RATE > 60 mL/min (>60); HEMOLYSIS 3; POTASSIUM 3.8 mEQ/L (3.4-4.9); SODIUM 140 mEQ/L (135-145)
[2016-10-08] MEDS: PCA shift volume MISC SCH ×3 (07:25→23:00)
[2016-10-08] MEDS: Docusate 100mg cap ORAL SCH ×2 (09:34→21:12)
[2016-10-08 11:24] VITALS: BP 109/50
--- NOTE | 2016-10-08 12:06 | General Progress Note ---
Assessment/Plan Problem List: (1) Intractable back pain Assessment & Plan: s/p I+D of buttocks, POD#5 s/p stage 2 debridement POD#2 Pain control Supp care f/u expedited workup of severe low back pain, s/p gluteal silicone injection, and lab workup to r/o AROLDO syndrome given classical symptoms and presentation urine neg f/u blood cultures Cont IV unasyn A total of 31 mins of additional time was spent with this patient beyond the normal face to face time included in the visit ICD Codes: M54.9 - Dorsalgia, unspecified SNOMED: 407965293 Subjective Date patient seen: Oct 08, 2016 Time patient seen: 12:05 ROS Limited/Unobtainable: No Allergies: Coded Allergies: No Known Allergies (Unverified , 10/01/16) Subjective s/p I+D, POD#5, s/p stage 2 debridement POD#2, no periop or postop complications. No chest pain or dyspnea, postop pain well controlled. Objective Last 24 Hour Vital Signs Date Time Temp Pulse Resp B/P Pulse Ox O2 Delivery O2 Flow Rate FiO2 10/08/16 11:24 98.6 105 20 109/50 99 Room Air 10/08/16 08:00 18 10/08/16 04:11 98.4 86 19 120/60 95 Room Air 10/08/16 04:00 18 10/08/16 00:23 97.8 102 18 116/61 94 Room Air 10/08/16 00:00 19 10/07/16 21:46 18 10/07/16 20:00 18 10/07/16 19:15 18 10/07/16 19:00 98.1 83 20 112/62 97 Room Air 10/07/16 18:52 97.5 10/07/16 18:52 97.5 10/07/16 16:00 97.5 91 20 115/55 98 Room Air 10/07/16 16:00 18 Intake and Output 10/07/16 10/08/16 19:00 07:00 Intake Total 1260 ml 1570 ml Output Total 240 ml 195 ml Balance 1020 ml 1375 ml Intake Oral 240 ml 460 ml IV Total 1020 ml 1110 ml Drainage Total 240 ml 165 ml Other 30 ml # Voids 6 4 Laboratory Tests 10/08/16 04:45: White Blood Count 16.9H, Red Blood Count 3.50L, Hemoglobin 10.7L, Hematocrit 31.5L, Mean Corpuscular Volume 90, Mean Corpuscular Hemoglobin 30.5, Mean Corpuscular Hemoglobin Concent 34.0, Red Cell Distribution Width 11.6, Platelet Count 290, Mean Platelet Volume 7.2, Neutrophils (%) (Auto) 73.5, Lymphocytes (% ) (Auto) 17.7L, Monocytes (%) (Auto) 7.7, Eosinophils (%) (Auto) 0.7, Basophils (%) (Auto) 0.3, Sodium Level 140, Potassium Level 3.8, Chloride Level 100, Carbon Dioxide Level 28, Anion Gap 12, Blood Urea Nitrogen 7, Creatinine 0.6, Estimat Glomerular Filtration Rate > 60, Glucose Level 94, Calcium Level 8.9 Height (Feet): 5 Height (Inches): 5.00 Weight (Pounds): 140 Objective General: alert, cooperative, no distress, appears stated age Head: normocephalic, without obvious abnormality, atraumatic Eyes: conjunctivae/corneas clear. PERRL, EOM's intact Throat: lips, mucosa, and tongue normal. MMM Neck: supple, symmetrical, trachea midline, and no JVD Lungs: clear to auscultation bilaterally Heart: regular rate and rhythm, S1, S2 normal, no murmur, click, rub or gallop Abdomen: soft, non-tender, non-distended, bowel sounds normal; no masses or organomegaly Extremities: extremities normal, atraumatic, no cyanosis or edema Pulses: 2+ and symmetric Skin: skin color, texture, turgor normal; no rashes or lesions Neurologic: grossly normal, no focal deficits DAVID TURNER Oct 08, 2016 12:06
--- NOTE | 2016-10-08 13:03 | General Progress Note ---
Progress Note Progress Note pt without any c/o AF/VSS H/H stable PE: incisional VAC in place JPs appropriate SS (-) collections/signs of infection A/P. 1. daily CBC 2. OOB/ DVT ppx/cont Abx 3. SUPA teaching; cont all 5 SUPA's 4. will change to Provena Plus home incisional VAC prior to d/c 5. d/c home Sun with 2 weeks Cipro 500 PO BID and pain Rx 6. no showers until all drains are out 7. limit supine time to 4 hrs/24 hrs; minimal sitting 8. f/u out pt next Sat 9. transition to oral pain rx Sonia Soliman M.D. Oct 08, 2016 13:03
[2016-10-08 16:00] VITALS: BP 119/61
[2016-10-08 20:14] VITALS: BP 109/64
[2016-10-08] MEDS ORDERED: Tubing IV Secondary IV ONE (22:54)
[2016-10-08] MEDS ORDERED: LR 1000ml ONE (22:54)
[2016-10-09 00:14] VITALS: BP 118/61
[2016-10-09] MEDS: Unasyn 3gm/NS 110ml IVPB SCH ×2 (00:14)
[2016-10-09] MEDS: LR 1000ml 1,000 ML IV SCH (04:00)
[2016-10-09 04:09] VITALS: BP 111/62
[2016-10-09] MEDS: Heparin 5000 units/ml inj SUBQ SCH ×2 (06:00→14:00)
[2016-10-09] MEDS: PCA shift volume MISC SCH (07:15)
[2016-10-09 08:00] VITALS: BP 109/58
[2016-10-09] MEDS ORDERED: Norco 10mg/325mg tab ORAL PRN (10:01)
[2016-10-09] MEDS: Docusate 100mg cap ORAL SCH (10:06)
--- NOTE | 2016-10-09 10:41 | Discharge Summary ---
Discharge Summary Hospital Course Date of Admission Oct 01, 2016 at 14:43 Date of Discharge Oct 09, 2016 Admitting Diagnosis intractable back pain Reason for Hospitalization: intractable back pain ILEANA Heard is a 26 year old female who was admitted on Oct 01, 2016 at 14: 43 for Intractable Back Pain Consultations Plastic Surgery Procedures See Operative Report Hospital Course 26 y/o female with hx of silicone injections into the buttocks area, presented with uncontrolled low back pain, radiculopathy, buttocks pain/burning. Admitted for pain control and further evaluation. Lab workup was done to r/o AROLDO syndrome. Plastic surgery was consulted, MRI showed granulomas throughout. She was taken to surgery for extensive debridement of soft tissue necrotic areas, no periop or postop complications. After stability of the wound, ability to ambulate and tolerating PO pain meds, pt was dced home with a wound vac and drains in place on and , will f/u with plastic surgery on Monday, for outpt followup. Discharge Condition Upon Discharge: stable Discharge Disposition Patient was discharged to home Discharge Diagnoses: (1) Intractable back pain (2) Adverse effect of silicone DAVID TURNER Oct 09, 2016 10:41
--- NOTE | 2016-10-09 10:42 | General Progress Note ---
Assessment/Plan Assessment/Plan (1) B/L buttock and back soft tissue necrosis, cellulitis (2) S/p staged debridement of b/l buttock and back necrotic soft tissue, flap advancement (3) Intractable pain The patient will continue on the [place] and Neurontin. 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 The patient was discussed with Dr. Kelly and Dr. Kelly concurred. Subjective Date patient seen: Oct 09, 2016 Time patient seen: 09:00 - am Allergies: Coded Allergies: No Known Allergies (Unverified , 10/01/16) Subjective REVIEW OF SYSTEMS: Denies rash, fever, chills, sweating, dizziness, drowsiness, blurred vision, sore throat, or change in her weight. No shortness of breath or chest pain. No nausea, vomiting, diarrhea, or blood in the stool or urine. No bowel or bladder incontinence. No dysuria. Complaining of back and buttock pain. SUBJECTIVE: Pts family is at bedside. She reports that her pain has been at a mild level and is c/o no pain at this time. Objective Last 24 Hour Vital Signs Date Time Temp Pulse Resp B/P Pulse Ox O2 Delivery O2 Flow Rate FiO2 10/09/16 08:00 98.1 102 18 109/58 99 Room Air 10/09/16 08:00 18 10/09/16 04:09 98.3 90 18 111/62 96 Room Air 10/09/16 04:00 18 10/09/16 00:14 98.8 94 19 118/61 97 Room Air 10/09/16 00:00 16 10/08/16 20:14 98.8 91 20 109/64 96 Room Air 10/08/16 20:00 18 10/08/16 16:07 18 10/08/16 16:00 98.2 100 20 119/61 99 Room Air 10/08/16 12:00 18 10/08/16 11:24 98.6 105 20 109/50 99 Room Air Intake and Output 10/08/16 10/09/16 19:00 07:00 Intake Total 1580 ml 2285 ml Output Total 1530 ml 2170 ml Balance 50 ml 115 ml Intake Oral 360 ml 950 ml IV Total 1220 ml 1335 ml Output Urine Total 1400 ml 2100 ml Drainage Total 130 ml 70 ml # Voids 2 # Bowel Movements 1 1 Height (Feet): 5 Height (Inches): 5.00 Weight (Pounds): 140 Objective PHYSICAL EXAMINATION: GENERAL: Alert, awake, and oriented x3. HEENT: PERRLA. NECK: Range of motion is full in all directions. No tenderness to the paracervical muscles. No adenopathy. LUNGS: Clear. HEART: Regular. ABDOMEN: Benign. BACK: Range of motion is decreased in flexion and extension with tenderness to paraspinal muscles with wound VAC seen and placed with tenderness to palpation on the buttock area. EXTREMITIES: No cyanosis. No clubbing. No edema. NEURO: No changes. ROSEANN WANG Oct 09, 2016 10:42
--- NOTE | 2016-10-09 11:19 | General Progress Note ---
Progress Note Progress Note pt without any c/o and reports resolution of pre-op symptoms and pain AF/VSS H/H stable PE: incisional VAC in place JPs appropriate SS (-) collections/signs of infection A/P. 1. OOB/ DVT ppx/cont Abx 2. SUPA teaching; cont all 5 SUPA's 3. switched to Provena Plus home incisional VAC 5. d/c home Sun with 2 weeks Cipro 500 PO BID and pain Rx 6. no showers until all drains are out 7. limit supine time to 4 hrs/24 hrs; minimal sitting 8. f/u out pt next Sat 9. transition to oral pain rx Sonia Soliman M.D. Oct 09, 2016 11:19
[2016-10-09 12:00] VITALS: BP 133/68
[2016-10-09 18:02] VITALS: BP 133/68
--- NOTE | 2016-10-11 03:59 | Consultation ---
DATE OF CONSULTATION: 10/02/2016 SURGEON: Sonia Soliman M.D. HISTORY OF PRESENT ILLNESS: This is a 26-year-old female, who presented to the emergency room of [facility] complaining of severe bilateral buttock and back pain, burning and itching, as well as fevers and chills, redness, and warmth to bilateral buttocks over the past couple of days. The patient has a history of injections to bilateral buttocks and hips of some foreign material, possibly silicone a few years ago. The patient has had intermittent problems over the past few years that are now worsening. She was admitted to the medical service under Dr. Gamble for early low-grade cellulitis, as well as a retractable flap and buttock pain. I was just called in to consult the patient for possible underlying soft tissue necrosis, just I was called in emergently and this is way I evaluated and treated the patient. PHYSICAL EXAMINATION: The patient is significantly tender, red, and warm to bilateral buttocks, tender and painful nodules, multiple ones in each buttock. There were some small areas of hyperpigmentation. There was no significant inguinal lymphadenopathy. There was some redness and warm of bilateral buttocks consistent with early cellulitis. The lumbar back was also tender to palpation and there was a small mass-like fluctuance underneath. The patient complained of significant limitations in ambulation and significant pain with sitting, as well as acute paresthesia and numbness of her left leg, greater than right. She was admitted yesterday for IV antibiotics. She had MRIs of lumbar spine and pelvis. The MRI showed significant jaycob soft tissue, as well as muscles, and inferior lateral portion of the muscle that was significantly involved and there was migration of the foreign material to L2 area of the spine. This would likely cause recurrent infections incapacitating buttock and back pain. The patient was also getting blood work to rule out AROLDO syndrome as well as any antibiotic acute infection. I would explain to the patient after reviewing the MRI and her physical exam that she is prone to recurrent infection and likely inciting cause of her incapacitating pain and numbness with some pressure on her back and sciatic nerves from this foreign material. I proposed the staged operation, I would go in and radically debride the soft tissue at the buttocks and the back and this is would likely alleviate her symptoms and free her pain and symptoms. The patient agreed to the operation. I will dictate a separate operative report. Sonia Soliman M.D. DR: MAYANK JOB#: [id number] CC:
--- NOTE | 2016-10-11 04:49 | Operative Note - Dictated ---
DATE OF OPERATION: 10/06/2016 SURGEON: Sonia Soliman M.D. SEARCH ENGINE MARKETING STRATEGIST SURGEON: Lena Martínez M.D. ANESTHESIOLOGIST: Louie Nguyen M.D. ANESTHESIA: General endotracheal tube anesthesia. PREOPERATIVE DIAGNOSES: As follows, 1. Open bilateral buttock wound, status post radical debridement and resection of necrotic soft tissue. 2. Bilateral buttock hip and back soft tissue necrosis secondary to foreign body. 3. Cellulitis of bilateral buttocks. OPERATION PERFORMED: As follows, 1. Staged partial radical debridement of foreign bodies from lumbar back and bilateral buttocks and hips. 2. Radical resection of 315 cm2 of necrotic right buttock and soft tissue necrosis mass. 3. Radical resection of 270 cm2 of necrotic left buttock and hip soft tissue mass. 4. Lumbar spine fasciocutaneous advancement flap. 5. Right gluteal fasciocutaneous advancement flap. 6. Left gluteal fasciocutaneous advancement flap. 7. Complex closure of 41 cm open back wound. INDICATIONS OF PROCEDURE: This is a 26-year-old female who was previously operated on 3 days prior. In the interim the patient was treated with VAC therapy on the floor as well as antibiotics. Her vitals have remained stable. The patient has been on antibiotics versus cellulitis, which has improved. Today the plan is to take the patient back for a planned second stage to look for further debridement of necrotic soft tissue from bilateral buttocks and hips as well as from her back and removal of the foreign material and fasciocutaneous advancement flap closure over drains. Risks and benefits of the operation were fully discussed with the patient in the previous operation and reiterated in the holding area. The patient agreed to proceed. Signed informed consent. All questions were answered. DESCRIPTION OF PROCEDURE: The patient was taken to the operating room in the supine position and placed under general endotracheal tube anesthesia. Perioperative antibiotics were confirmed and SCDs were placed in bilateral lower extremities. She was then flipped into the prone position after appropriate positioning and padding of her arms and the rest of the body. We removed the VAC that was placed prior. We then prepped and draped the entire area in the usual clean and sterile manner. We used the blue towel and [place] dressing over the anus to block any bowel flow. We then started the operation by exploring for any bleeding. There was nothing significant. We then used [place] clamps and we measured proposed skin excision from bilateral buttock flaps as well as the back. We used a #10 scalpel to cut the skin and electrocautery to cut out skin and soft tissue. With the aid of a lighted retractor, we had to further elevate her flaps inferiorly and bilateral buttocks. We did this all the way down to the inferior gluteal crease. We then elevated in the plane of dissection above the gluteus jaycob muscles. What was noted was there is significant infiltration and involvement of bilateral gluteus jaycob muscles on the inferior lateral portion, and we had to debride about 25% of the gluteus jaycob muscles and we paid careful attention to the sciatic nerve, which is avoided, since this was a necrotic, hard muscle. We then debrided more foreign body and soft tissue necrosis from bilateral buttocks and hips. There was a total of 315 cm2 of right buttock and hip necrotic soft tissue and 270 cm2 of necrotic left buttock and hip soft tissue, which we debrided in this manner. We made sure hemostasis was achieved with electrocautery as well as 2-0 Vicryl sutures. We also reconstructed the muscle by closing it with 0-Vicryl sutures. We then incised the deep fascia and we advanced gluteus flaps superiorly in terms of the lumbar spine, which we previously elevated, was further elevated and the deep fascia was incised. Some of the skin was cut out. We then closed some of the space in a progressive tension suturing and advanced the flap technique, and we used 0-PDS sutures to tuck down the skin. Prior to doing that, we irrigated 2 L of antibiotic irrigation and made sure we obtained hemostasis. Two #19 Yi Shadi drains were used and three 10-mm SUPA drains were used. The blades were placed at each of dependent portion of the buttocks. One 10-mm SUPA was in each central portion of each buttock and one SUPA was placed underneath the back flap. They were taken out through separate anterior lateral stab incisions and secured in place with 2-0 silk sutures. There was a 41-cm incision, which we had lined up after excising dog ears. We then lined up and approximated Cyndi fascia in interrupted fashion with 0-Vicryl sutures. We lined and approximated the deep dermis in interrupted fashion with 2-0 Vicryl sutures and then closed the subcuticular layer with a running 2-0 Monocryl suture. We then placed the Prevena incisional VAC. After doing this, there was minimal tension and good capillary refill, and we were pleased with the contour. The patient was flipped over into the supine position, extubated, and transferred to recovery room in stable condition. FINDINGS: As above. SPECIMENS: Left and right buttock and hip necrotic soft tissue. ESTIMATED BLOOD LOSS: 200 mL. COMPLICATIONS: None. CONDITION: Stable. Sonia Soliman M.D. DR: MAYELIN JOB#: [id number] CC:
--- NOTE | 2016-10-11 05:39 | Operative Note - Dictated ---
DATE OF OPERATION: 10/03/2016 SURGEON: Sonia Soliman M.D. [employer] SURGEON: Sarah Martínez M.D. ANESTHESIOLOGIST: Frederic Arreaga M.D. ANESTHESIA: General endotracheal tube anesthesia. PREOPERATIVE DIAGNOSES: As follows: 1. Bilateral buttock and hip soft tissue necrosis secondary to foreign body reaction. 2. Cellulitis of bilateral buttocks. POSTOPERATIVE DIAGNOSES: 1. Bilateral buttock and hip soft tissue necrosis secondary to foreign body reaction. 2. Cellulitis of bilateral buttocks. OPERATION PERFORMED: As follows: 1. Staged partial radical debridement of bilateral buttocks and removal from bilateral buttocks, hips, and back of foreign material. 2. Elevation and delay of right inferiorly based gluteal fasciocutaneous flap. 3. Elevation and delay of left inferiorly based gluteal fasciocutaneous flap. 4. Elevation and delay of lumbar spine fasciocutaneous flap. 5. Radical resection of 206 sq. cm of necrotic right buttock soft tissue mass. 6. Radical resection of 180 sq. cm of necrotic left buttock soft tissue mass. 7. Radical resection of 88 sq. cm of necrotic right back soft tissue mass. 8. Radical resection of 55 sq. cm of left back necrotic soft tissue. 9. Debridement of bilateral gluteus jaycob muscles. 10. Pulse lavage irrigation of bilateral buttocks. 11. Back based into bilateral buttocks. INDICATIONS FOR PROCEDURE: This is a 26-year-old female, who I previously dictated consultation on after she was admitted to the hospital, complaining of significant and severe incapacitating bilateral buttock as well as back pain as well as low-grade cellulitis. The patient was evaluated and cleared by the medical team, Dr. Gamble, and treated with intravenous antibiotics for the cellulitis and the blood work to rule out AROLDO syndrome was pending. She was also seen by a psychiatrist. An MRI of the lumbar spine and pelvis showed a significant infiltration of the subcutaneous tissues of the lumbar spine up to L2 as well as both bilateral buttocks including infiltration of bilateral gluteus jaycob muscles, which was significantly involved. This was the inciting cause for the patient's recurrent infections and cellulitis and is likely the cause of the paresthesias and acute numbness, for which she presented to the emergency room with compression on the paraspinal muscles as well as the sciatic nerve. The psychiatrist was asked to clear the patient so that she understands she was about to undergo and was told the following that this was a staged partial removal of foreign material that was injected in her buttocks and hips. There is no guarantee she will get better. There is a possibility she would get worse and the silicone may migrate and I certainly would not going to be able to followed by and that would be impossible to do and there is a strong likelihood that some of the silicone has already migrated from her buttocks to the back and other parts of the body. I also explained to the patient that it has the potential for being cosmetically disfiguring that could be a poor cosmetic outcome. The benefits of the proposed operation would be to debulk and remove as much of the foreign body burden as possible to take the pressure off the nerves in her spine and her legs and buttocks, which will relieve her pain and will also allow her immune system to resect, which is not as prone to recurrent infections and opportunistic infections and to prevent further migration of the material to other parts of the body. The past couple of days, the patient was treated by Dr. Gamble of the medical team for antibiotics and he was ruling out AROLDO syndrome. Her cellulitis has improved on antibiotics. She has been on the pain control and pain management team for incapacitating significant buttock and back pain. I told the patient that this is going to be a staged procedure with two operations, the first one today, in which I would raise and delay fasciocutaneous flaps in the back and bilateral buttocks. I can see the viability of the skin flaps can be an incredible amount of debulking that is going to occur. I stated that since such a large amount of debulking was going to occur, these flaps may become necrotic at their distal edges. This is my reasoning in elevating and delaying the flaps and treating her with the back in the interim and also having the benefit of re-evaluating the flaps to see if they needed to be debrided and to use a VAC to suck out the bacteria and any foreign material. I explained to the patient it is unknown how much of the foreign material I would take out, but I told her I would take out whatever is visible and palpable in a safe manner. It was reiterated that this could be be cosmetically disfiguring. She could have scarring. Her wound may break down. She may need multiple reconstructive surgeries over the next many years and that her buttocks may come out significantly deformed. I told her conversely if she did nothing she is at risk of having the skin and eventually her whole buttocks necrosed and she would require much more radical surgery. The risks and benefits of the proposed operation including but not limited to, bleeding, hematoma, infection, seroma, DVT, PE, OK, , necrosis of the skin flaps, open wounds, delayed healing, hypertrophic scarring, keloid scarring, skin necrosis, damage to sensory and motor nerves, difficulty ambulating, chronic pain, and embolization of the silicon to other parts of the body. We discussed and all questions were answered. DESCRIPTION OF PROCEDURE: The patient was taken to the operating room, given 5000 units of heparin subcutaneously as well as perioperative antibiotics were confirmed. In the preoperative holding area, I marked a low transverse incision about 5 cm above the gluteal cleft. I correlated my markings with her MRI material. SCDs were placed and then prior to the induction of anesthesia, she was then flipped in a prone position. After appropriate position and padding in the operating room table, the buttocks and back were prepped and draped in the usual manner. The anus was protected with a blue towel and Ioban dressing. It was explained to the patient through the slow transverse incision that this was a very complex operation and from this incision, I would have to go near her inferior gluteal crease because there was significant infiltration of the muscles in the MRI and this was a very complex operation. Using a #10 scalpel, we dissected through the skin and used electrocautery to dissect all the way down to the deep muscle fascia, the gluteus jaycob muscles, and the paraspinal muscles. We then elevated 3 fasciocutaneous flaps. We elevated a superiorly based lumbar fasciocutaneous flap about 12 cm correlating to the MRI and L2 spine. We then elevated left and right inferiorly based gluteal fasciocutaneous flaps as far down as we could in the interim as we have been able to dissect about 20 cm and then in the plane just deep to Cyndi fascia. We dissected the skin flaps off the soft tissue and then with a combination of sharp dissection and electrocautery, we were able to debulk a large amount of fat necrosis, silicone scar tissue, and silicone granulomas and silicone that was liquid encountered. We were able to debulk it in the buttocks and back. There were 206 sq. cm of necrotic soft tissue from the right buttock mass that we removed, 180 sq. cm in the left buttock that we removed, 88 sq. cm necrotic soft tissue from the right back that we removed, and 55 sq. cm necrotic soft tissue from the left back that we removed with a combination of sharp and electrocautery. After doing this, we noted there was some necrosis and infiltration of bilateral gluteus jaycob muscles. These were debrided sharply. We also sierra picked through the muscle and any superficial silicone granulomas were popped and the superficial silicone granuloma just below the dermis were also popped. We obtained hemostasis with electrocautery. We irrigated with 2 liters of antibiotic irrigation and reconfirmed hemostasis. We were quite pleased with initial debulking. We then placed VAC sponges underneath the flaps, partially closed the wound with ladonna, set the machine at 125 mm of pressure, flipped the patient over, extubated and transferred to the recovery room in stable condition. FINDINGS: As above. SPECIMENS: Four bilateral buttocks, necrotic soft tissue mass, and also bilateral back necrotic soft tissue. DRAINS: VAC sponges bilateral. ESTIMATED BLOOD LOSS: Was about 250 mL. COMPLICATIONS: None. CONDITION: Stable. Sonia Soliman M.D. DR: Alisson JOB#: [id number] CC:
== END 2016-10-09 17:20 | disposition home or self-care (01) | DRG 574 ==
LOC: EMR 14:34 → 4W 14:43 → EDBEDREQ 20:24 → 4W 10-05 01:05
PROC: 0KBP0ZZ Excision of Left Hip Muscle, Open Approach (ICD-10-PCS; 2016-10-03)
PROC: 0WBL0ZZ Excision of Lower Back, Open Approach (ICD-10-PCS; 2016-10-03)
PROC: 0H86XZZ Division of Back Skin, External Approach (ICD-10-PCS; 2016-10-03)
PROC: 0H88XZZ Division of Buttock Skin, External Approach (ICD-10-PCS; 2016-10-03)
PROC: 0KBN0ZZ Excision of Right Hip Muscle, Open Approach (ICD-10-PCS; 2016-10-03)
PROC: 0KBP0ZZ Excision of Left Hip Muscle, Open Approach (ICD-10-PCS; principal; 2016-10-06 12:30)
PROC: 0JX70ZZ Transfer Back Subcutaneous Tissue and Fascia, Open Approach (ICD-10-PCS; principal; 2016-10-06 12:30)
PROC: 0JX90ZZ Transfer Buttock Subcutaneous Tissue and Fascia, Open Approach (ICD-10-PCS; principal; 2016-10-06 12:30)
PROC: 0KBN0ZZ Excision of Right Hip Muscle, Open Approach (ICD-10-PCS; principal; 2016-10-06 12:30)
PROC: 0WBL0ZZ Excision of Lower Back, Open Approach (ICD-10-PCS; principal; 2016-10-06 12:30)
PROC: 0JQ70ZZ Repair Back Subcutaneous Tissue and Fascia, Open Approach (ICD-10-PCS; principal; 2016-10-06 12:30)
DX: L03.317 Cellulitis of buttock (principal); I96 Gangrene, not elsewhere classified; M54.89 Other dorsalgia; T49 Poisoning by, adverse effect of and underdosing of topical agents primarily affecting skin and mucous membrane and by ophthalmological, otorhinorlaryngological and dental drugs; M79.5 Residual foreign body in soft tissue
CPT/HCPCS: 36415; 72148; 72195; 80048; 80053; 81003; 81025; 82164; 82553; 82784; 82962; 83605; 84165; 84484; 85025; 85610; 85613; 85651; 85730; 86140; 86162; 86235; 86332; 86334; 86360; 86431; 86850; 86900; 86901; 86920; 87040; 94003; 94150; J2180; J2250; J2405; J2710